=== PATIENT | female | born 1995 ===

== ENCOUNTER 2024-01-04 13:43 | Emergency (ER) | payer BC, SELFPAY ==
[2024-01-04 13:46] VITALS: BP 120/70; PULSE 80; TEMP 36.6; O2SAT 98; BMI 45.7
[2024-01-04 14:23] LABS: Bilirubin Urine NEGATIVE (NEGATIVE); Blood Urine NEGATIVE (NEGATIVE); Clarity Urine CLEAR (CLEAR); Color Urine YELLOW (YELLOW); Glucose Urine UA NEGATIVE (NEGATIVE); Ketones Urine TRACE mg/dL (NEGATIVE); Leukocyte Esterase Urine LARGE (NEGATIVE); Nitrite Urine NEGATIVE (NEGATIVE); Protein Urine NEGATIVE (NEG/TRACE); Specific Gravity Urine 1.025 (1.005-1.025)
[2024-01-04 14:32] LABS: HCG Qualitative Urine* POSITIVE (NEGATIVE); Internal Control Within Normal Limits
[2024-01-04 14:33] LABS: Urine Microscopic Indicated YES
[2024-01-04 14:43] LABS: Bacteria Urine MODERATE #/HPF (NONE SEEN); Cast Seen? NONE SEEN #/LPF (NONE SEEN); Crystals Seen? None Seen #/HPF (None Seen); Mucus Urine SMALL (NONE SEEN); RBC Urine 0-2 #/HPF (0-2); Squamous Epithelial Cell Urine MANY #/LPF (NONE/RARE); Urine Culture Indicated YES
[2024-01-04 14:46] LABS: Basophils Absolute Auto 0.1 10^3/uL (0.0-0.1); Basophils Percent Auto 0.4 % (0.2-2.0); Eosinophils Absolute Auto 0.1 10^3/uL (0.0-0.7); Eosinophils Percent Auto 0.9 % (0.9-7.0); Hematocrit 38.5 % (36.0-48.0); Immature Granulocytes Abs Auto 0.04 10^3/uL (0.00-0.03); Immature Granulocytes Pct Auto 0.3 % (0.0-0.5); Lymphocytes Absolute Auto 2.4 10^3/uL (1.2-3.8); Lymphocytes Percent Auto 20.9 % (20.5-60.0); Mean Corpuscular HGB Conc 33.8 g/dL (29.9-35.2); Mean Corpuscular Hemoglobin 28.8 pg (26.7-34.0); Mean Corpuscular Volume 85.2 fL (81.0-99.0); Monocytes Absolute Auto 0.6 10^3/uL (0.3-0.8); Monocytes Percent Auto 5.6 % (1.7-12.0); Neutrophils Absolute Auto 8.3 10^3/uL (1.4-6.5); Neutrophils Percent Auto 71.9 % (43.0-75.0); Platelet Count 283 10^3/uL (150-450); Red Blood Count 4.52 10^6/uL (4.20-5.40); Red Cell Distribution Width 13.2 % (11.0-15.0); White Blood Count 11.5 10^3/uL (4.0-11.0)
[2024-01-04] MEDS: ONDANSETRON PF 4 MG/2 ML VIAL IV (14:51)
[2024-01-04] MEDS: 0.9 % SODIUM CHLORIDE 1,000 ML 1000 ML IV (14:51)
[2024-01-04 15:13] LABS: Alanine Aminotransferase 39 U/L (14-59); Albumin Globulin Ratio 0.9; Albumin Level 3.4 g/dL (3.4-5.0); Alkaline Phosphatase 81 U/L (46-116); Anion Gap 14.9; Aspartate Amino Transferase 18 U/L (15-37); BUN Creatinine Ratio 17.5; Bilirubin Total 0.2 mg/dL (0.2-1.0); Calcium 8.6 mg/dL (8.5-10.1); Carbon Dioxide 22.3 mmol/L (21.0-32.0); Chloride 102 mmol/L (98-107); Estimated GFR (African America >60 (>=60); Estimated GFR (Non-African Ame >60 (>=60); Globulin 3.7 g/dL; Glucose 83 mg/dL (74-106); Potassium 4.2 mmol/L (3.5-5.1); Sodium 135 mmol/L (136-145); Total Protein 7.1 g/dL (6.4-8.2)
[2024-01-04] MEDS: PROCHLORPERAZINE 10 MG/2 ML VIAL 5 MG IV (15:45)
--- NOTE | 2024-01-04 16:36 | ED_ITS ---
HPI HPI - General Adult General Chief complaint: Nausea/Vomiting/Diarrhea Stated complaint: NAUSEA/VOMITTING 8 WEEKS Time Seen by Provider: 01/04/24 13:53 Source: patient Mode of arrival: walk-in Limitations: no limitations History of Present Illness HPI narrative: The patient is her last menstruation was October 09, is coming to us with nausea vomiting she mentioned that this is the second in the first she did not have any nausea vomiting The patient has not been able to tolerate anything p.o. she is denying any other complaints of vaginal bleeding or abdominal pain She follow-up with Dr. Long as outpatient and she did try some Zofran that she had at home but it was not effective Related Data Previous Rx's ?Medication ?Instructions ?Recorded amoxicillin 875 mg-potassium 1 tab PO BID #10 tabs 01/04/24 clavulanate 125 mg tablet promethazine 12.5 mg tablet 12.5 mg PO TID PRN nausea and 01/04/24 vomiting #10 tabs Allergies Allergy/AdvReac Type Severity Reaction Status Date / Time No Known Drug Allergies Allergy Verified 01/04/24 13:49 Opioid HPI Opioid Management Most Recent Opioid Data: No Data to Display Review of Systems ROS Status of ROS 10 or more systems reviewed and unremark able except as noted in history and below Exam Narrative Exam Narrative: Nurses notes and vital signs reviewed and patient is not hypoxic. General: Well-appearing and in no apparent distress. Skin: Warm, dry, no pallor noted. No rash. Head: Normocephalic, atraumatic. Neck: Supple, non-tender. Eye: Pupils are equal, round and EOMI. No scleral icterus. Ears, Nose, Mouth, and Throat: TM are clear, no nasal mucosal hypertrophy. Oral mucosa is moist, no posterior oropharynx erythema, uvula is mid-line Cardiovascular: Regular Rate and Rhythm without murmur, gallop or rub. Respiratory: No accessory muscle use or respiratory distress. Lungs are clear to auscultation, no wheezing, rales or rhonchi Chest Wall: no tenderness Back: No midline thoracic or lumbar vertebral tenderness. No CVA tenderness Musculoskeletal: normal ROM, no calf or popliteal tenderness, no lower extremity edema/swelling GI: Abdomen is soft, non-distended. Normal bowel sounds. No masses appreciated. No tenderness to palpation. No rebound, guarding, or rigidity noted. Neurological: A&O x4. No cranial nerve dysfunction observed. No truncal ataxia. Moves all extremities. Sensation intact. Psychiatric: Cooperative and interactive. Normal mood and affect. Constitutional Vital Signs, click to edit/add: Last Vital Signs Temp 98 F 01/04/24 13:46 Pulse 80 01/04/24 13:46 Resp 18 01/04/24 13:46 BP 120/70 01/04/24 13:46 Pulse Ox 98 01/04/24 13:46 O2 Del Method Room Air 01/04/24 13:46 Course Vital Signs Vital signs: Vital Signs Temperature 98 F 01/04/24 13:46 Pulse Rate 80 01/04/24 13:46 Respiratory Rate 18 01/04/24 13:46 Blood Pressure 120/70 01/04/24 13:46 Pulse Oximetry 98 01/04/24 13:46 Oxygen Delivery Method Room Air 01/04/24 13:46 Temperature 98 F 01/04/24 13:46 Pulse Rate 80 01/04/24 13:46 Respiratory Rate 18 01/04/24 13:46 Blood Pressure 120/70 01/04/24 13:46 Pulse Oximetry 98 01/04/24 13:46 Oxygen Delivery Method Room Air 01/04/24 13:46 Medical Decision Making MDM Narrative Medical decision making narrative: The patient CBC and chemistry showed no acute pathology She did had some mild ketones in the urine bacteria although she does not have any urinary symptoms The patient was treated initially with Zofran that was not helpful but she did respond better to Compazine The patient will be discharged home after she was provided with IV fluids in addition to Phenergan supportive care The patient is to follow up with primary care physician in next 2-3 days or to return to the emergency department should any of the signs or symptoms worsen or new symptoms develop. The patient agrees with the following Diagnosis and Treatment plan and the patient will be discharged home. Lab Data Labs: Lab Results 01/04/24 01/04/24 Range/Units 14:10 14:40 WBC 11.5 H (4.0-11.0) 10^3/uL RBC 4.52 (4.20-5.40) 10^6/uL Hgb 13.0 (12.0-16.0) g/dL Hct 38.5 (36.0-48.0) % MCV 85.2 (81.0-99.0) fL MCH 28.8 (26.7-34.0) pg MCHC 33.8 (29.9-35.2) g/dL RDW 13.2 (11.0-15.0) % Plt Count 283 (150-450) 10^3/uL MPV 10.0 (9.5-13.5) fL Neut % (Auto) 71.9 (43.0-75.0) % Lymph % (Auto) 20.9 (20.5-60.0) % [place] % (Auto) 5.6 (1.7-12.0) % Eos % (Auto) 0.9 (0.9-7.0) % Baso % (Auto) 0.4 (0.2-2.0) % Neut # (Auto) 8.3 H (1.4-6.5) 10^3/uL Lymph # (Auto) 2.4 (1.2-3.8) 10^3/uL [place] # (Auto) 0.6 (0.3-0.8) 10^3/uL Eos # (Auto) 0.1 (0.0-0.7) 10^3/uL Baso # (Auto) 0.1 (0.0-0.1) 10^3/uL Abs Immat Gran (auto) 0.04 H (0.00-0.03) 10^3/uL Imm/Tot Granulo (auto) 0.3 (0.0-0.5) % Sodium 135 L (136-145) mmol/L Potassium 4.2 (3.5-5.1) mmol/L Chloride 102 (98-107) mmol/L Carbon Dioxide 22.3 (21.0-32.0) mmol/L Anion Gap 14.9 BUN 10.0 (7.0-18.0) mg/dL Creatinine 0.57 (0.55-1.02) mg/dL Est GFR ( Amer) >60 (>=60) Est GFR (Non-Af Amer) >60 (>=60) BUN/Creatinine Ratio 17.5 Glucose 83 (74-106) mg/dL Calcium 8.6 (8.5-10.1) mg/dL Total Bilirubin 0.2 (0.2-1.0) mg/dL AST 18 (15-37) U/L ALT 39 (14-59) U/L Alkaline Phosphatase 81 (46-116) U/L Total Protein 7.1 (6.4-8.2) g/dL Albumin 3.4 (3.4-5.0) g/dL Globulin 3.7 g/dL Albumin/Globulin Ratio 0.9 Urine Color Yellow (YELLOW) Urine Clarity Clear (CLEAR) Urine pH 6.0 (5.0-9.0) Ur Specific [place] 1.025 (1.005-1.025) Urine Protein Negative (NEG/TRACE) mg/dL Urine Glucose (UA) Negative (NEGATIVE) mg/dL Urine Ketones Trace A (NEGATIVE) mg/dL Urine Occult Blood Negative (NEGATIVE) Urine Nitrite Negative (NEGATIVE) Urine Bilirubin Negative (NEGATIVE) Urine Urobilinogen 1.0 (0.2-1.0) EU/dL Ur Leukocyte Esterase Large A (NEGATIVE) Urine RBC 0-2 (0-2) #/HPF Urine WBC 10-20 A (NONE SEEN) #/HPF Ur Squamous Epith Cells Many A (NONE/RARE) #/LPF Urine Crystals None seen (None Seen) #/HPF Urine Bacteria Moderate A (NONE SEEN) #/HPF Urine Casts None seen (NONE SEEN) #/LPF Urine Mucus Small A (NONE SEEN) Ur Culture Indicated? Yes Urine HCG, Qual Positive A (NEGATIVE) Discharge Plan Discharge Stand Alone Forms: Work/School Release, Portal Instructions Chief Complaint: Nausea/Vomiting/Diarrhea Clinical Impression: Nausea and vomiting in , Antepartum asymptomatic bacteriuria in first trimester Patient Disposition: Home, Self-Care Time of Disposition Decision: 16:36 Condition: Good Prescriptions / Home Meds: New promethazine 12.5 mg tablet 12.5 mg PO TID PRN (Reason: nausea and vomiting) Qty: 10 0RF Rx Instructions: 3 doses during day; last dose no later than 4 hr before bedtime amoxicillin-pot clavulanate 875-125 mg tablet 1 tab PO BID Qty: 10 0RF Print Language: Swazi Instructions: Nausea and Vomiting in (ED) Referrals: Physician,Non-Staff, MD [Primary Care Provider] - 1 week
== END 2024-01-04 16:56 | disposition home or self-care (01) ==
PROVIDERS: Emergency Provider Emergency Medicine
DX: O26.891 Other specified pregnancy related conditions, first trimester (principal); R11.2 Nausea with vomiting, unspecified; R82.71 Bacteriuria; Z3A.08 8 weeks gestation of pregnancy
CPT/HCPCS: 36415; 80053; 81001; 84703; 85025; 87086; 96361; 96374; 96375; 99285; J0780; J2405

== ENCOUNTER 2024-01-16 13:50 | Outpatient (OUT) | payer BC, SELFPAY ==
--- NOTE | 2024-01-16 13:52 | US_ITS ---
[address] [address] Patient Name: NIKOLAI COYNE MRN: [id number] date: 1995 Sex: F Assigned Patient Location: [facility] Current Patient Location: Accession/Order Number: [id number] Exam Date: 01/16/2024 13:55 Report Date: 01/17/2024 04:20 At the request of: MARY CARMEN DELEON Procedure: US OB transvaginal EXAMINATION: US OB transvaginal HISTORY: MISSED MENSES COMPARISON: No relevant comparison available. FINDINGS: GESTATIONAL SAC: Present and normal appearing. YOLK SAC: Present and normal appearing. POLE: Present and normal appearing. CARDIAC: Present. UTERUS: Normal size and appearance. OVARIES: Right: Normal. Left: Corpus lutein cyst. CERVIX: 4.0 cm in length and closed. CUL-DE-SAC: Normal. OTHER: None. AGE BY LMP: 14 weeks 0 days VINICIO BY LMP: 07/16/2024 AGE BY US CRL: 10 weeks 0 days VINICIO BY US CRL: 08/13/2024 US/US OB transvaginal IMPRESSION: 1. Single live intrauterine . Electronically authenticated by: JOSUE AVERY Date: 01/17/2024 04:20
== END 2024-01-16 13:51 | disposition home or self-care (01) ==
LOC: NOMS 13:51
PROVIDERS: Visit Provider Obstetrics & Gynecology
DX: Z34.91 Encounter for supervision of normal pregnancy, unspecified, first trimester (principal); Z3A.10 10 weeks gestation of pregnancy; N92.6 Irregular menstruation, unspecified
CPT/HCPCS: 76817

== ENCOUNTER 2024-02-04 16:08 | Outpatient (OUT) | payer BC, SELFPAY ==
--- OUTSIDE RECORDS SUMMARY | 2024-02-04 16:12 | XMS_ITS | CCD ---
Author Organization [facility] Care Team Providers Care Screw Machine Set Up Operator Name Role Phone Tarah NICOLEgh Lidia Primary Care Physician [phone] Rosy Jaquez Aleksandar V. Attending Damion Tobias V. Attending ALMA Burris Attending Unavailable DK ZACARIAS Attending CARMELLA Guerra Attending CARMELLA Guerra Attending Unavailable Allergies Allergy Classification Reported Allergen(s) Allergy Type Date of Onset Reaction(s) Facility (1 source) No Known Medication Allergies; Translations: [No Known Medication Allergies] Propensity to adverse reactions (disorder) [facility] Repository Medications Current Medications Medication Drug Class(es) Dates Sig (Normalized) Sig (Original) amoxicillin 500 mg oral tablet (1 source) Penicillin-class Antibacterial Start: 01-16-2023 End: 01-23-2023 take 2 tablets by mouth twice daily amoxicillin 500 mg oral tablet 1,000 mg = 2 tab(s), Oral, BID, X 7 day(s), # 28 tab(s), Refills(s) 0, Pharmacy: [facility], 157, cm, 01/16/23 15:17:00 EDT, Height/Length Dosing, 98.6, kg, 01/16/23 15:17:00 EDT, Weight Dosing Start Date: 01/16/23 Stop Date: 01/23/23 Status: Ordered ferrous sulfate 325 mg oral tablet (3 sources) Start: 12-21-2021 take 325 mg by mouth twice daily ferrous sulfate 325 mg, Oral, BID, Refills(s) 0 Start Date: 12/21/21 Status: Ordered ibuprofen 600 mg oral tablet (1 source) Nonsteroidal Anti-inflammatory Drug Start: 02-01-2022 take 1 tablet by mouth every six hours ibuprofen 600 mg Tab 600 mg = 1 tab(s), Oral, q6hr, # 15 tab(s), Refills(s) 0, Pharmacy: [facility], 157.4, cm, 01/30/22 18:05:00 EDT, Height/Length Dosing, 92.3, kg, 01/30/22 18:05:00 EDT, Weight Dosing Start Date: 02/01/22 Status: Ordered ondansetron 4 mg oral tablet (2 sources) Serotonin-3 Receptor Antagonist Start: 04-11-2023 take 1 tablet by mouth every six hours as needed for nausea ondansetron 4 mg Tab 4 mg = 1 tab(s), Oral, q6hr, PRN Nausea/Vomiting, # 15 tab(s), Refills(s) 0, Pharmacy: [facility], 160, cm, 04/11/23 16:22:00 EST, Height/Length Dosing, 97.4, kg, 04/11/23 16:22:00 EST, Weight Dosing Start Date: 04/11/23 Status: Ordered Complete with DHA (1 source) Start: 01-30-2022 Complete with DHA Refill(s) 0 Start Date: 01/30/22 Status: Ordered Problems Active Problems Problem Classification Problem Date Documented Da te Episodic/Chronic Abdominal pain (7 sources) Epigastric pain 02-25-2020 Episodic Nausea and vomiting (1 source) Nausea and vomiting; Translations: [Nausea with vomiting, unspecified] Onset: 04-11-2023 Episodic Other complications of (4 sources) Maternal tobacco use 01-30-2022 Episodic Other complications of (1 source) Unspecified infection of urinary tract in , first trimester; Translations: [Unspecified infection of urinary tract in , first trimester] Onset: 01-10-2024 Episodic Other complications of (1 source) Vomiting of , unspecified; Translations: [Vomiting of , unspecified] Onset: 01-10-2024 Episodic Other ear and sense organ disorders (1 source) Impacted cerumen of bilateral ears; Translations: [Impacted cerumen, bilateral] Onset: 01-16-2023 Episodic Other gastrointestinal disorders (1 source) Diarrhea; Translations: [Diarrhea, unspecified] Onset: 04-11-2023 Episodic Other liver diseases (7 sources) Elevated liver enzymes level 02-25-2020 Episodic Other nutritional; endocrine; and metabolic disorders (7 sources) Body mass index 30+ - obesity 05-20-2021 Chronic Other nutritional; endocrine; and metabolic disorders (7 sources) Obesity 05-20-2021 Chronic Other nutritional; endocrine; and metabolic disorders (1 source) Morbid obesity; Translations: [Morbid (severe) obesity due to excess calories] Onset: 01-16-2023 Chronic Other nutritional; endocrine; and metabolic disorders (1 source) Other symptoms and signs concerning food and fluid intake; Translations: [Other symptoms and signs concerning food and fluid intake] Onset: 01-10-2024 Episodic Other and delivery including normal (1 source) Delivery normal; Translations: [Encounter for full-term uncomplicated delivery] Onset: 02-01-2022 Episodic Otitis media and related conditions (1 source) Otitis media; Translations: [Otitis media, unspecified, left ear] Onset: 01-16-2023 Episodic Residual codes; unclassified (7 sources) High risk sexual behavior 12-30-2019 Episodic Substance-related disorders (9 sources) Cigarette smoker ; Translations: [Nicotine dependence] Onset: 02-01-2022 02-25-2020 Chronic Past or Other Problems Problem Classification Problem Date Documented Da te Episodic/Chronic Unclassified (6 sources) Onset: 05-03-2021 Resolved: 01-31-2022 11-08-2021 Results Test Name Value Interpretation Reference Range Facility Cult,Urineon 01-12-2024 Cult,Urine Specimen Description .Random Urine Culture NO SIGNIFICANT GROWTH Report Status FINAL 01/12/2024 Normal [facility] Comment on above: Performed By: #### U RC #### [facility] [address] [place] [address] Anime Artist: Les Garzon MD [facility] [address] [place] [address] Anime Artist: Matt Jarrell MD CBC with Diffon 01-10-2024 Abs. Basophil 0.03 k/uL Normal 0.00-0.20 [facility] Comment on above: Performed By: #### C DP, LIP, CP #### [facility] [address] [place] [address] Anime Artist: Matt Jarrell MD Abs.Imm.Granulocyte 0.03 k/uL Normal 0.00-0.30 [facility] Comment on above: Performed By: #### C DP LIP, CP #### [facility] [address] [place] [address] Anime Artist: Matt Jarrell MD Abs.Neutrophil (Seg) 8.26 k/uL High 2.5-7.0 [facility] Comment on above: Performed By: #### C DP LIP, CP #### [facility] [address] [place] [address] Anime Artist: Matt Jarrell MD Basophils/100 WBC (Bld) 0 % Normal 0-2 [facility] Comment on above: Performed By: #### C AKIRA LIP, CP #### [facility] [address] [place] [address] Anime Artist: Matt Jarrell MD Eosinophils (Bld) [#/Vol] 0.08 10*3/uL Normal 0.00-0.40 [facility] Comment on above: Performed By: #### C DP LIP, CP #### [facility] [address] [place] [address] Anime Artist: Matt Jarrell MD Eosinophils/100 WBC (Bld) 1 % Normal 0-5 [facility] Comment on above: Performed By: #### C DP LIP, CP #### [facility] [address] [place] [address] Anime Artist: Matt Jarrell MD Erythrocyte distribution width (RBC) [Ratio] 13.0 % Normal 12.1-15.2 [facility] Comment on above: Performed By: #### C DP LIP, CP #### [facility] [address] [place] [address] Anime Artist: Matt Jarrell MD Hematocrit (Bld) [Volume fraction] 38.8 % Normal 36.0-46.0 [facility] Comment on above: Performed By: #### C OTILIA CHAMPION, CP #### [facility] [address] [place], [place] [id number] Anime Artist: Matt Jarrell MD Hemoglobin (Bld) [Mass/Vol] 13.3 g/dL Normal 12.0-16.0 [facility] Comment on above: Performed By: #### C AKIRA LIP, CP #### [facility] [address] [place], [place] [id number] Anime Artist: Matt Jarrell MD Immature granulocytes/100 WBC (Bld) 0 % Normal 0-5 [facility] Comment on above: Performed By: #### C OTILIA CHAMPION, CP #### [facility] [address] [place], [place] [id number] Anime Artist: Matt Jarrell MD Lymphocytes (Bld) [#/Vol] 2.31 10*3/uL Normal 1.00-4.80 [facility] Comment on above: Performed By: #### C OTILIA CHAMPION, CP #### [facility] [address] [place], [place] [id number] Anime Artist: Matt Jarrell MD Lymphocytes/100 WBC (Bld) 20 % Normal 15-40 [facility] Comment on above: Performed By: #### C AKIRA LIP, CP #### [facility] [address] [place], [place] [id number] Anime Artist: Matt Jarrell MD MCH (RBC) [Entitic mass] 28.8 pg Normal 26.0-34.0 [facility] Comment on above: Performed By: #### C AKIRA LIP, CP #### [facility] [address] [place], [place] [id number] Anime Artist: Matt Jarrell MD MCHC (RBC) [Mass/Vol] 34.3 g/dL Normal 31.0-37.0 [facility] Comment on above: Performed By: #### C OTILIA CHAMPION, CP #### [facility] [address] [place] [address] Anime Artist: Matt Jarrell MD MCV (RBC) [Entitic vol] 84.0 fL Normal 80.0-100.0 [facility] Comment on above: Performed By: #### C OTILIA CHAMPION, CP #### [facility] [address] [place] [address] Anime Artist: Matt Jarrell MD Monocytes (Bld) [#/Vol] 0.71 10*3/uL Normal 0.00-1.00 [facility] Comment on above: Performed By: #### C OTILIA CHAMPION, CP #### [facility] [address] [place] [address] Anime Artist: Matt Jarrell MD Monocytes/100 WBC (Bld) 6 % Normal 4-8 [facility] Comment on above: Performed By: #### C OTILIA CHAMPION, CP #### [facility] [address] [place] [address] Anime Artist: Matt Jarrell MD Neutrophil (Seg) 73 % Normal 47-75 [facility] Comment on above: Performed By: #### C OTILIA CHAMPION, CP #### [facility] [address] [place] [address] Anime Artist: Matt Jarrell MD Platelet mean volume (Bld) [Entitic vol] 9.9 fL Normal 6.0-12.0 [facility] Comment on above: Performed By: #### C OTILIA CHAMPION, CP #### [facility] [address] [place] [address] Anime Artist: Matt Jarrell MD Platelets (Bld) [#/Vol] 244 10*3/uL Normal 140-450 [facility] Comment on above: Performed By: #### C OTILIA CHAMPION, CP #### [facility] [address] [place] [id number] Anime Artist: Matt Jarrell MD RBC (Bld) [#/Vol] 4.62 10*6/uL Normal 4.00-5.20 [facility] Comment on above: Performed By: #### C OTILIA CHAMPION, CP #### [facility] [address] [place] [id number] Anime Artist: Matt Jarrell MD WBC (Bld) [#/Vol] 11.4 10*3/uL High 3.5-11.0 [facility] Comment on above: Performed By: #### C OTILIA CHAMPION, CP #### [facility] [address] [place] [address] Anime Artist: Matt Jarrell MD Comp Metabolic Profon 2023 Albumin [Mass/Vol] 4.0 g/dL Normal 3.5-5.2 [facility] Comment on above: Performed By: #### C OTILIA CHAMPION, CP #### [facility] [address] [place] [address] Anime Artist: Matt Jarrell MD Alkaline Phos 92 U/L Normal 35-104 [facility] Comment on above: Performed By: #### C OTILIA CHAMPION, CP #### [facility] [address] [place] [address] Anime Artist: Matt Jarrell MD ALT [Catalytic activity/Vol] 43 U/L High 5-33 [facility] Comment on above: Performed By: #### C OTILIA CHAMPION, CP #### [facility] [address] [place] [id number] Anime Artist: Matt Jarrell MD Anion gap [Moles/Vol] 15 mmol/L Normal 9-17 [facility] Comment on above: Performed By: #### C DP, LIP, CP #### [facility] [address] [place] [address] Anime Artist: Matt Jarrell MD AST [Catalytic activity/Vol] 22 U/L Normal <32 [facility] Comment on above: Performed By: #### C DP, LIP, CP #### [facility] [address] [place] [address] Anime Artist: Matt Jarrell MD Bilirubin [Mass/Vol] 0.6 mg/dL Normal 0.3-1.2 [facility] Comment on above: Performed By: #### C DP, LIP, CP #### [facility] [address] [place] [address] Anime Artist: Matt Jarrell MD BUN/CRE Ratio 18 Normal 9-20 [facility] Comment on above: Performed By: #### C DP, LIP, CP #### [facility] [address] [place] [address] Anime Artist: Matt Jarrell MD Calcium [Mass/Vol] 9.1 mg/dL Normal 8.6-10.4 [facility] Comment on above: Performed By: #### C DP, LIP, CP #### [facility] [address] [place] [address] Anime Artist: Matt Jarrell MD Chloride [Moles/Vol] 101 mmol/L Normal 98-107 [facility] Comment on above: Performed By: #### C DP, LIP, CP #### [facility] [address] [place] [address] Anime Artist: Matt Jarrell MD CO2 [Moles/Vol] 19 mmol/L Low 20-31 [facility] Comment on above: Performed By: #### C DP, LIP, CP #### [facility] [address] [place], [place] [id number] Anime Artist: Matt Jarrell MD Creatinine [Mass/Vol] 0.5 mg/dL Normal 0.5-0.9 [facility] Comment on above: Performed By: #### C OTILIA CHAMPION, CP #### [facility] [address] [place], [place] [phone] Anime Artist: Matt Jarrell MD GFR/1.73 sq M.predicted among non-blacks MDRD (S/P/Bld) [Vol rate/Area] mL/min/{1.73_m2} Normal >60 [facility] Comment on above: Result Comment: These results are not intended for use in patients <18 years of age. eGFR results are calculated without a race factor using the 2020 CKD-EPI equation. Careful clinical correlation is recommended, particularly when comparing to results calculated using previous equations. The CKD-EPI equation is less accurate in patients with extremes of muscle mass, extra-renal metabolism of creatine, excessive creatine ingestion, or following therapy that affects renal tubular secretion. Performed By: #### C OTILIA CHAMPION, CP #### [facility] [address] [place] [address] Anime Artist: Matt Jarrell MD Glucose [Mass/Vol] 95 mg/dL Normal 70-99 [facility] Comment on above: Performed By: #### C OTILIA CHAMPION, CP #### [facility] [address] [place], [place] [phone] Anime Artist: Matt Jarrell MD Potassium [Moles/Vol] 3.7 mmol/L Normal 3.7-5.3 [facility] Comment on above: Performed By: #### C OTILIA CHAMPION, CP #### [facility] [address] [place], [place] [id number] Anime Artist: Matt Jarrell MD Protein [Mass/Vol] 7.2 g/dL Normal 6.4-8.3 [facility] Comment on above: Performed By: #### C OTILIA CHAMPION, CP #### [facility] [address] [place] [address] Anime Artist: Matt Jarrell MD Sodium [Moles/Vol] 135 mmol/L Normal 135-144 [facility] Comment on above: Performed By: #### C OTILIA CHAMPION, CP #### [facility] [address] [place], [place] [id number] Anime Artist: Matt Jarrell MD Urea nitrogen [Mass/Vol] 9 mg/dL Normal 6-20 [facility] Comment on above: Performed By: #### C AKIRA LIP, CP #### [facility] [address] [place], [place] [phone] Anime Artist: Matt Jarrell MD HCG, Quanton 01-10-2024 HCG, Quant 552190.0 mIU/mL High <5 [facility] Comment on above: Result Comment: Non-preg premeno <=5 Postmeno <=8 Male <=3 If HCG results do not concur with clinical observations, additional testing to confirm results is recommended. Performed By: #### B HCG #### [facility] [address] [place], [place] [id number] Anime Artist: Matt Jarrell MD Lipaseon 01-10-2024 Lipase [Catalytic activity/Vol] 13 U/L Normal 13-60 [facility] Comment on above: Performed By: #### C OTILIA CHAMPION, CP #### [facility] [address] [place], [place] [id number] Anime Artist: Matt Jarrell MD Urinalysis, Routineon 2023 Bilirubin, SemiQt,Ur Negative Normal NEG [facility] Comment on above: Performed By: #### KIRA Brewer #### [facility] [address] [place] [address] Anime Artist: Matt Jarrell MD Blood, Urine TRACE Abnormal NEG [facility] Comment on above: Performed By: #### SAGRARIO BrewerO #### [facility] [address] [place] [address] Anime Artist: Matt Jarrell MD Clarity (U) Clear Normal CLEAR [facility] Comment on above: Performed By: #### U A, UMICAO #### [facility] [address] [place] [address] Anime Artist: Matt Jarrell MD Color (U) Yellow Normal YEL [facility] Comment on above: Performed By: #### U A, UMICAO #### [facility] [address] [place] [address] Anime Artist: Matt Jarrell MD Comment Normal [facility] Comment on above: Performed By: #### U A, UMICAO #### [facility] [address] [place], [place] [id number] Anime Artist: Matt Jarrell MD Glucose Ql (U) Negative Normal NEG [facility] Comment on above: Performed By: #### U A, UMICAO #### [facility] [address] [place], [place] [phone] Anime Artist: Matt Jarrell MD Ketones Ql (U) MODERATE Abnormal NEG [facility] Comment on above: Performed By: #### U A, UMICAO #### [facility] [address] [place], [place] [phone] Anime Artist: Matt Jarrell MD Leukocyte esterase Test strip Ql (U) 3+ Abnormal NEG [facility] Comment on above: Performed By: #### U A, UMICAO #### [facility] [address] [place], [place] [id number] Anime Artist: Matt Jarrell MD Nitrite,Ur Negative Normal NEG [facility] Comment on above: Performed By: #### U A, UMICAO #### [facility] [address] [place], [place] [phone] Anime Artist: Matt Jarrell MD PH,Ur 6.5 Normal 5.0-8.0 [facility] Comment on above: Performed By: #### U KIRA Murillo #### [facility] [address] [place], [place] [id number] Anime Artist: Matt Jarrell MD Protein Ql (U) 1+ mg/dL Abnormal NEG [facility] Comment on above: Performed By: #### U SAGRARIO MurilloO #### [facility] [address] [place], [place] [id number] Anime Artist: Matt Jarrell MD Spec. Eads,Ur 1.015 Normal 1.005-1.030 [facility] Comment on above: Performed By: #### U KIRA Murillo #### [facility] [address] [place], [place] [id number] Anime Artist: Matt Jarrell MD Urobilinogen,Ur 8 mg/dL Normal 0.0-1.0 [facility] Comment on above: Performed By: #### U KIRA Murillo #### [facility] [address] [place], [place] [id number] Anime Artist: Matt Jarrell MD Urinalysis,Microon 4 ----- Normal [facility] Comment on above: Performed By: #### U SAGRARIO MurilloO #### [facility] [address] [place], [place] [id number] Anime Artist: Matt Jarrell MD Bacteria RARE Abnormal NONE [facility] Comment on above: Performed By: #### U ASAGRARIOO #### [facility] [address] [place], [place] [id number] Anime Artist: Matt Jarrell MD Epithelial cells LM Ql (Urine sed) 0 TO 2 Normal [facility] Comment on above: Performed By: #### U ASAGRARIOO #### [facility] [address] [place], [place] [phone] Anime Artist: Matt Jarrell MD Mucus Strands RARE Abnormal NONE [facility] Comment on above: Performed By: #### U A, UMICAO #### [facility] [address] [place], [place] [id number] Anime Artist: Matt Jarrell MD Urine RBC's 0 TO 2 Normal 0-2 [facility] Comment on above: Performed By: #### U A, UMICAO #### [facility] [address] [place], [place] [id number] Anime Artist: Matt Jarrell MD Urine WBC's 10 TO 20 Normal 0 [facility] Comment on above: Performed By: #### U A, UMICAO #### [facility] [address] [place], [place] [phone] Anime Artist: Matt Jarrell MD Provider Letteron 04-12-2023 Provider Letter April 12, 2023 [facility] [address] [place] [address] : 1995 To Whom It May Concern, Please excuse above patient from work. Date of Illness:04-11-2023 To: 04-14-2023 May Return to Work On:04-15-2023 Restrictions: _ Comments: _ Sincerely, [facility] [address] [place] [address] [place] [address] [facility] Family Medicine Office/Clini c Noteon 04-11-2023 Family Medicine Office/Clinic Note Chief Complaint n/v/d HPI Staff 27 yr old female here for abdominal pain and diarrhea. Nausea and vomiting. Onset- Saturday fever/chills- Chills Body aches- yes History of Present Illness Portions of this record may have been created with voice recognition artificial intelligence software, specifically [employer], [employer] and or [employer]. Substitutions may have occurred due to the inherent limitations of voice recognition and artificial intelligence software. Staff hpi reviewed. Patient is a 27-year-old female complaint of nausea vomiting and diarrhea. Patient states son is a same symptoms. Patient states his symptoms began on Saturday and has had fevers and chills. No other complaints or concerns. Patient with no known medication allergies. Review of Systems PHQ Score Initial Depression Screen Score: 0 SCORE Physical Exam Vitals & Measurements T: 36.5 ?C(Temporal Artery) HR: 90(Peripheral) BP: 122/75 SpO2: 99% HT: 63 in HT: 160 cm WT: 97.4 kg WT: 214.28 lb BMI: 38.05 General - alert no acute distress Skin - warm dry Head -normocephalic atraumatic ENT-no pharyngeal erythema or exudates, moist mucous membranes Cardiovascular - regular rate regular rhythm Respiratory - lungs clear to auscultation, non-labored respirations, breath sounds equal Assessment/Plan 1. Nausea & vomiting (R11.2: Nausea with vomiting, unspecified) Patient flu was negative. Patient was treated with Zofran. Continue with fluids and rest. Avoid any spicy or acidic foods. Follow-up with PCP in 3 to 5 days for recheck. Sooner with any worsening symptoms. 2. Diarrhea (R19.7: Diarrhea, unspecified) Same as above. Orders: ondansetron, 4 mg = 1 tab(s), Oral, q6hr, PRN Nausea/Vomiting, # 15 tab(s), Refills(s) 0, Pharmacy: [facility], 160, cm, 04/11/23 16:22:00 EST, Height/Length Dosing, 97.4, kg, 04/11/23 16:22:00 EST, Weight Dosing Follow-up With When Contact Information Breonna NICOLE CNP [address] [place] [address]- Additional Instructions: Patient Education Nausea and Vomiting, Adult Problem List/Past Medical History Ongoing BMI 34.0-34.9,adult Cigarette smoker Elevated liver enzymes Epigastric abdominal pain High risk sexual behavior Obesity due to excess calories Historical Procedure/Surgical History Left wrist. Medications ondansetron 4 mg Tab, 4 mg= 1 tab(s), Oral, q6hr, PRN Allergies No Known Allergies Social History Alcohol - Medium Risk, 02/23/2020 1-2 times per week, 02/23/2020 Current, Beer, Wine, Liquor, 1-2 times per month, 01/19/2019 Substance Abuse - Denies Substance Abuse, 01/19/2019 Tobacco - High Risk, 02/23/2020 10 or more cigarettes (1/2 pack or more)/day in last 30 days Tobacco Use:. Never Smokeless Tobacco Use:. Cigarettes, Yes, 04/11/2023 10 or more cigarettes (1/2 pack or more)/day in last 30 days Tobacco Use:. Never Smokeless Tobacco Use:. Cigarettes, Ready to change: No. Household tobacco concerns: No. Yes, 01/16/2023 Family History Family history is negative Immunizations Vaccine Date Status Comments influenza virus vaccine, inactivated - Not Given Postpone due to refusal SARS-CoV-2 mRNA (tochikinameran 5y-11y) vac - Not Given Postpone due to refusal human papillomavirus vaccine 06/09/2009 Recorded influenza virus vaccine, inactivated 02/05/2009 Recorded human papillomavirus vaccine 02/05/2009 Recorded varicella virus vaccine 12/03/2008 Recorded diphtheria/pertussis , acel/tetanus adult 12/03/2008 Recorded meningococcal conjugate vaccine 12/03/2008 Recorded human papillomavirus vaccine 12/03/2008 Recorded measles/mumps/rubell a virus vaccine 12/05/2001 Recorded DTaP, unspecified formulation 12/05/2001 Recorded varicella virus vaccine 04/06/1998 Recorded poliovirus vaccine, inactivated 04/06/1998 Recorded measles/mumps/rubell a virus vaccine 04/06/1998 Recorded haemophilus b conj (PRP-OMP) vaccine 04/06/1998 Recorded DTaP, unspecified formulation 04/06/1998 Recorded hepatitis B pediatric vaccine 08/25/1997 Recorded haemophilus b conj (PRP-OMP) vaccine 08/25/1997 Recorded DTaP, unspecified formulation 08/25/1997 Recorded poliovirus vaccine, inactivated 02/08/1997 Recorded haemophilus b conj (PRP-OMP) vaccine 02/08/1997 Recorded poliovirus vaccine, inactivated 1996 Recorded hepatitis B pediatric vaccine 1996 Recorded haemophilus b conj (PRP-OMP) vaccine 1996 Recorded DTaP, unspecified formulation 1996 Recorded hepatitis B pediatric vaccine 1996 Recorded Normal [facility] Comment on above: Result Comment: Elec tronically Signed By: Spasic PA-Damion Frances.br\Date and Time Signed: 04/11/23 17:10 EST Patient Educationon 04-11-20 Patient Education Gastroenterology Nausea and Vomiting, Adult Nausea is the feeling that you have an upset stomach or that you are about to vomit. As nausea gets worse, it can lead to vomiting. Vomiting is when stomach contents forcefully come out of your mouth as a result of nausea. Vomiting can make you feel weak and cause you to become dehydrated. Dehydration can make you feel tired and thirsty, cause you to have a dry mouth, and decrease how often you urinate. Older adults and people with other diseases or a weak disease-fighting system (immune system) are at higher risk for dehydration. It is important to treat your nausea and vomiting as told by your health care provider. Follow these instructions at home: Watch your symptoms for any changes. Tell your health care provider about them. Eating and drinking ? Take an oral rehydration solution (ORS). This is a drink that is sold at pharmacies and retail stores. ? Drink clear fluids slowly and in small amounts as you are able. Clear fluids include water, ice chips, low-calorie sports drinks, and fruit juice that has water added (diluted fruit juice). ? Eat bland, vuhu-ms-yciqrr foods in small amounts as you are able. These foods include bananas, applesauce, rice, lean meats, toast, and crackers. ? Avoid fluids that contain a lot of sugar or caffeine, such as energy drinks, sports drinks, and soda. ? Avoid alcohol. ? Avoid spicy or fatty foods. General instructions ? Take uksy-pzh-wapcffq and prescription medicines only as told by your health care provider. ? Drink enough fluid to keep your urine pale yellow. ? Wash your hands often using soap and water for at least 20 seconds. If soap and water are not available, use hand product blending supervisor. ? Make sure that everyone in your household washes their hands well and often. ? Rest at home while you recover. ? Watch your condition for any changes. ? Take slow and deep breaths when you feel nauseous. ? Keep all follow-up visits. This is important. Contact a health care provider if: ? Your symptoms get worse. ? You have new symptoms. ? You have a fever. ? You cannot drink fluids without vomiting. ? Your nausea does not go away after 2 days. ? You feel light-headed or dizzy. ? You have a headache. ? You have muscle cramps. ? You have a rash. ? You have pain while urinating. Get help right away if: ? You have pain in your chest, neck, arm, or jaw. ? You feel extremely weak or you faint. ? You have persistent vomiting. ? You have vomit that is bright red or looks like black coffee grounds. ? You have bloody or black stools (feces) or stools that look like tar. ? You have a severe headache, a stiff neck, or both. ? You have severe pain, cramping, or bloating in your abdomen. ? You have difficulty breathing, or you are breathing very quickly. ? Your heart is beating very quickly. ? Your skin feels cold and clammy. ? You feel confused. ? You have signs of dehydration, such as: ? Dark urine, very little urine, or no urine. ? Cracked lips. ? Dry mouth. ? Sunken eyes. ? Sleepiness. ? Weakness. These symptoms may be an emergency. Get help right away. Call 911. ? Do not wait to see if the symptoms will go away. ? Do not drive yourself to the hospital. Summary ? Nausea is the feeling that you have an upset stomach or that you are about to vomit. As nausea gets worse, it can lead to vomiting. Vomiting can make you feel weak and cause you to become dehydrated. ? Follow instructions from your health care provider about eating and drinking to prevent dehydration. ? Take zqaw-uur-bvwneaf and prescription medicines only as told by your health care provider. ? Contact your health care provider if your symptoms get worse, or you have new symptoms. ? Keep all follow-up visits. This is important. This information is not intended to replace advice given to you by your health care provider. Make sure you discuss any questions you have with your health care provider. Document Revised: 11/03/2021 Document Reviewed: 11/03/2021 [employer] Patient Education ? 2022 [employer] [facility] Patient Letter FTon 2022 Patient Letter [facility] [address], [place] [address] April 11, 2023 BECKI COYNE [address] [place] [address] : 1995 Please excuse BECKI COYNE from work . Date and/or Time of Absence: From: 04/11 To: 03/15 May return to work on: 03/16 Restrictions: None Comments: Please excuse due to an acute illness. Provider Signature: Keshav Ortega PA-C [address] [place] [address] [facility] Family Medicine Office/Clini c Noteon 01-16-2023 Family Medicine Office/Clinic Note Chief Complaint EST left ear pain, sore throat HPI Staff Becki, 27 yo female here today with ear pain Onset- 1 wk ago Fevers: no Sinus congestion: yes Sneezing: yes Ear pain: left Ear itching, popping, fullness, ringing, muffled hearing: all Ear drainage: no Sore throat: yes Ear pain worse with chewing: no DIfficulty hearing: no Treatment- no History of Present Illness I have reviewed and verified the staff HPI to be accurate for this encounter. Portions of this record have been created with voice recognition software. Occasional wrong-word or ?lzrto-h-dwqb? substitutions may have occurred due to the inherent limitations of voice recognition software. 27 yo female presents today with cc of ear pain. Pt states onset of ear pain x 1 week ago. Patient states that 1 week ago she had some nasal congestion now little bit of a runny nose. She thought that the left ear is bothering her just from the congestion and fullness however pain is continued x1 week. She denies any fever or chills but states the left ear has been throbbing. She denies any significant cough she states a minor scratchy throat. She denies any recent sick contacts or recent travel. Denies any COVID-19 exposure that she is aware of and does not have concern for COVID-19 today. Patient has no other concerns at this time. Review of Systems PHQ Score Initial Depression Screen Score: 0 ROS negative unless otherwise stated in HPI. Physical Exam Vitals & Measurements T: 36.9 ?C(Oral) HR: 76(Peripheral) BP: 118/78 SpO2: 98% HT: 62 in HT: 157 cm WT: 98.6 kg WT: 216.92 lb BMI: 40 General: pleasant, obese female, no acute distress Eyes: Bilateral conjunctival with normal limits no injection Ears: Bilateral tympanic membranes are not visualized due to bilateral cerumen impaction. Otherwise right external auditory canal within normal limits no erythema or edema. There is some edema at the base of the left external auditory canal there is a cerumen impaction otherwise no edema. Nose: No deformity, discharge, inflammation, or lesions Mouth: Moist mucous membrane. No tonsillar erythema or exudate no signs of peritonsillar abscess no trismus or drooling. Neck: no adenopathy. Lungs: Lung sounds are clear bilaterally. No wheezing rhonchi or crackles on exam. Cardio: S1, S2, regular rhythm. No murmurs gallops or rubs. Abdomen: not assessed Musculoskeletal: not assessed Extremity: not assessed Neurologic: not assessed Skin: No rashes, ulcerations, or suspicious lesions Mental Status: Alert and oriented x3. Normal mood and affect Assessment/Plan 1. Left otitis media (H66.92: Otitis media, unspecified, left ear) Will treat with amoxicillin 1g bid x 7 days. Finish course. Fluids/rest, PRN tylenol/ibuprofen for pain and/or fever encouraged. Discussed other cold symptoms remain viral in nature- typical duration 7-14 days.Encouraged to follow up with PCP for recheck in about 5 days to ensure infection resolving, especially if symptoms worsening or fevers. Patient and/or parent verbalized understanding of treatment plan. Ordered: amoxicillin, 1,000 mg = 2 tab(s), Oral, BID, X 7 day(s), # 28 tab(s), Refills(s) 0, Pharmacy: [facility], 157, cm, 01/16/23 15:17:00 EDT, Height/Length Dosing, 98.6, kg, 01/16/23 15:17:00 EDT, Weight Dosing 2. Impacted cerumen, bilateral (H61.23: Impacted cerumen, bilateral) Bilateral ears flushed out by Huyen WALTERS. Patient tolerated well. moderate amount of cerumen removed. After flushing, right tympanic membrane appears with normal limits no erythema or bulging. Left tympanic membrane is significantly erythematous and bulging concerning for left otitis media. See plan of treatment above discussed ear may feel a little sore for the next 2 days. Fu with PCP if any further concerns. If needs ears flushed out in future may return to convenient care office. Ordered: Ear Irrigation 48613 Ear Irrigation 11995 3. Cigarette smoker (F17.210: Nicotine dependence, cigarettes, uncomplicated) We strongly recommend to quit tobacco use. Cigarette smoking harms nearly every organ of the body, causes many diseases, and reduces the health of smokers in general. Quitting smoking lowers your risk for smoking-related diseases and can add years to your life. We encourage you to visit www.smokefree.gov access to helpful resources including free telephone support. If you decide on prescription treatment to help you quit, we would be happy to provide these. Ordered: Current tobacco smoker 1034F 4. Morbid obesity with BMI of 40.0-44.9, adult (E66.01: Morbid (severe) obesity due to excess calories) The standard range for ages 18 and older is >=18.5 and < 25 kg/m2. Your BMI today was above this range, this falls in the overweight to obese category and there are medical benefits to weight loss. We can offer counselling, referral, and/or medical support in addressing this problem. Your BMI and weight management will be followed at subsequent vi (more content not included)... Normal [facility] Comment on above: Result Comment: Elec tronically Signed By: Valente ISABEL, Delfino Crenshaw\.br\Date and Time Signed: 01/16/23 15:53 EDT Patient Educationon 01-17-20 23 Patient Education ENT Earwax Buildup, Adult The ears produce a substance called earwax that helps keep bacteria out of the ear and protects the skin in the ear canal. Occasionally, earwax can build up in the ear and cause discomfort or hearing loss. What are the causes? This condition is caused by a buildup of earwax. Ear canals are self-cleaning. Ear wax is made in the outer part of the ear canal and generally falls out in small amounts over time. When the self-cleaning mechanism is not working, earwax builds up and can cause decreased hearing and discomfort. Attempting to clean ears with cotton swabs can push the earwax deep into the ear canal and cause decreased hearing and pain. What increases the risk? This condition is more likely to develop in people who: ? Clean their ears often with cotton swabs. ? Pick at their ears. ? Use earplugs or in-ear headphones often, or wear hearing aids. The following factors may also make you more likely to develop this condition: ? Being male. ? Being of older age. ? Naturally producing more earwax. ? Having narrow ear canals. ? Having earwax that is overly thick or sticky. ? Having excess hair in the ear canal. ? Having eczema. ? Being dehydrated. What are the signs or symptoms? Symptoms of this condition include: ? Reduced or muffled hearing. ? A feeling of fullness in the ear or feeling that the ear is plugged. ? Fluid coming from the ear. ? Ear pain or an itchy ear. ? Ringing in the ear. ? Coughing. ? Balance problems. ? An obvious piece of earwax that can be seen inside the ear canal. How is this diagnosed? This condition may be diagnosed based on: ? Your symptoms. ? Your medical history. ? An ear exam. During the exam, your health care provider will look into your ear with an instrument called an otoscope. You may have tests, including a hearing test. How is this treated? This condition may be treated by: ? Using ear drops to soften the earwax. ? Having the earwax removed by a health care provider. The health care provider may: ? Flush the ear with water. ? Use an instrument that has a loop on the end (curette). ? Use a suction device. ? Having surgery to remove the wax buildup. This may be done in severe cases. Follow these instructions at home: ? Take sujk-ntu-bqmyfjs and prescription medicines only as told by your health care provider. ? Do not put any objects, including cotton swabs, into your ear. You can clean the opening of your ear canal with a washcloth or facial tissue. ? Follow instructions from your health care provider about cleaning your ears. Do not overclean your ears. ? Drink enough fluid to keep your urine pale yellow. This will help to thin the earwax. ? Keep all follow-up visits as told. If earwax builds up in your ears often or if you use hearing aids, consider seeing your health care provider for routine, preventive ear cleanings. Ask your health care provider how often you should schedule your cleanings. ? If you have hearing aids, clean them according to instructions from the cuff turner machine operator and your health care provider. Contact a health care provider if: ? You have ear pain. ? You develop a fever. ? You have pus or other fluid coming from your ear. ? You have hearing loss. ? You have ringing in your ears that does not go away. ? You feel like the room is spinning (vertigo). ? Your symptoms do not improve with treatment. Get help right away if: ? You have bleeding from the affected ear. ? You have severe ear pain. Summary ? Earwax can build up in the ear and cause discomfort or hearing loss. ? The most common symptoms of this condition include reduced or muffled hearing, a feeling of fullness in the ear, or feeling that the ear is plugged. ? This condition may be diagnosed based on your symptoms, your medical history, and an ear exam. ? This condition may be treated by using ear drops to soften the earwax or by having the earwax removed by a health care provider. ? Do not put any objects, including cotton swabs, into your ear. You can clean the opening of your ear canal with a washcloth or facial tissue. This information is not intended to replace advice given to you by your health care provider. Make sure you discuss any questions you have with your health care provider. Document Revised: 08/16/2020 Document Reviewed: 08/16/2020 [employer] Patient Education ? 2022 [employer]. Ear Irrigation Ear irrigation is a procedure to wash dirt and wax out of your ear canal. This procedure is also called lavage. You may need ear irrigation if you are having trouble hearing because of a buildup of earwax. You may also have ear irrigation as part of the treatment for an ear infection. Getting wax and dirt out of your ear canal can help ear drops work better. Tell a health care provider about: ? Any allergies you have. ? All medicines you are taking, including vitamins, herbs, eye drops, cr (more content not included)... Normal [facility] HEMATOLOGYOrdered By: Megan Montana on 02-01-2022 Erythrocyte distribution width (RBC) [Ratio] 12.9 % Normal 10.9 - 14.2 % [facility] HemeAutoSS Hematocrit (Bld) [Volume fraction] 26.9 % Low 34.0 - 46.0 % [facility] HemeAutoSS Hemoglobin (Bld) [Mass/Vol] 8.7 g/dL Low 12.0 - 16.0 gm/dL [facility] HemeAutoSS MCH (RBC) [Entitic mass] 27.7 pg Normal 27.0 - 34.0 pg [facility] HemeAutoSS MCHC (RBC) [Mass/Vol] 32.2 g/dL Normal 31.4 - 36.0 gm/dL [facility]eAuto[facility] MCV (RBC) [Entitic vol] 85.9 fL Normal 80.0 - 100.0 fL [facility] Platelet mean volume (Bld) [Entitic vol] 9.1 fL Normal 6.4 - 10.8 fL [facility]eAuto[facility] Platelets (Bld) [#/Vol] 322.0 E9/L Normal 150.0 - 500.0 E9/L [facility]eAuto[facility] RBC (Bld) [#/Vol] 3.1 E12/L Low 4.3 - 5.9 E12/L [facility] WBC corrected for nucl RBC Auto (Bld) [#/Vol] 18.3 E9/L High 4.0 - 11.0 E9/L [facility] Comment on above: Result Comment: Ekta e reviewed by RS 02/01/2022 07:19:32 EDT. BLOOD BANKOrdered By: Guzman Nunez on 01-30-2022 ABO/Rh Interp Positive Invalid Interpretation Code [facility] BB Subsection ABSC Gel Interp Negative (01/30/22 6:08 PM) Normal [facility] BB Subsection HEMATOLOGYOrdered By: Guzman Nunez on 01-30-2022 Erythrocyte distribution width (RBC) [Ratio] 13.3 % Normal 10.9 - 14.2 % [facility] HemeAutoSS Hematocrit (Bld) [Volume fraction] 34.0 % Normal 34.0 - 46.0 % [facility] HemeAutoSS Hemoglobin (Bld) [Mass/Vol] 11.3 g/dL Low 12.0 - 16.0 gm/dL [facility] HemeAutoSS MCH (RBC) [Entitic mass] 28.4 pg Normal 27.0 - 34.0 pg [facility] HemeAutoSS MCHC (RBC) [Mass/Vol] 33.1 g/dL Normal 31.4 - 36.0 gm/dL [facility] HemeAutoSS MCV (RBC) [Entitic vol] 85.7 fL Normal 80.0 - 100.0 fL [facility]eAutoSS Platelet mean volume (Bld) [Entitic vol] 9.0 fL Normal 6.4 - 10.8 fL [facility] HemeAutoSS Platelets (Bld) [#/Vol] 387.0 E9/L Normal 150.0 - 500.0 E9/L [facility] RBC (Bld) [#/Vol] 4.0 E12/L Low 4.3 - 5.9 E12/L [facility]eAuto[facility] WBC corrected for nucl RBC Auto (Bld) [#/Vol] 14.4 E9/L High 4.0 - 11.0 E9/L [facility] URINALYSISOrdered By: Guzman Nunez on 01-30-2022 Bilirubin Ql (U) Negative (01/30/22 11:01 PM) Normal Negative [facility] UA Auto SS Clarity (U) Clear (01/30/22 11:01 PM) Normal Clear [facility] UA Auto SS Color (U) Yellow (01/30/22 11:01 PM) Normal Yellow [facility] UA Auto SS Epithelial cells.squamous LM.HPF (Urine sed) [#/Area] 0-2 /HPF Normal 0-2/HPF [facility] UA Aut o SS Glucose Test strip (U) [Mass/Vol] Negative (01/30/22 11:01 PM) Normal Negative [facility] UA Auto SS Hemoglobin Ql (U) Negative (01/30/22 11:01 PM) Normal Negative [facility] UA Auto SS Ketones (U) [Mass/Vol] Negative (01/30/22 11:01 PM) Normal Negative [facility] UA Auto SS Drumright.plasma/Lithiu m.RBC (Bld) [Mass ratio] 0-3 /HPF Normal 0-3/HPF [facility] UA Auto SS Nitrite Ql (U) Negative (01/30/22 11:01 PM) Normal Negative [facility] UA Auto SS pH (U) 7.0 *NA* (01/30/22 11:01 PM) Invalid Interpretation Code 5.0 - 9.0 [facility] UA Auto SS Protein (U) [Mass/Vol] Negative (01/30/22 11:01 PM) Normal Negative [facility] UA Auto SS Specific gravity (U) [Rel density] 1.020 *NA* (01/30/22 11:01 PM) Invalid Interpretation Code 1.005 - 1.030 [facility] UA Auto SS UA Spec Desc Lamas (01/30/22 11:01 PM) Normal [facility] UA Auto SS Urobilinogen Qn (U) [id number] {Kai'U}/dL Normal 0.0 - 1.0 EU/dL [facility] UA Auto SS WBC Auto Ql (U) Negative (01/30/22 11:01 PM) Normal Negative [facility] UA Auto SS WBC LM.HPF (Urine sed) [#/Area] 0-5 /HPF Normal 0-5/HPF [facility] UA Auto SS CHEMISTRYOrdered By: SYSTEM SYSTEM on 11-02-2021 Glucose 1 Hr post 50 g glucose PO [Mass/Vol] 91 mg/dL Normal 55 - 140 mg/dL [facility] Remisol HEMATOLOGYOrdered By: Prerna brumfield on 11-02-2021 Hematocrit (Bld) [Volume fraction] 32.6 % Low 34.0 - 46.0 % [facility] HemeAutoSS Hemoglobin (Bld) [Mass/Vol] 10.9 g/dL Low 12.0 - 16.0 gm/dL [facility] HemeAutoSS Vital Signs Date Time Vital Sign Value Performing Clinician Facility 04-11-2023 16:19-0500 Blood Pressure Location [facility] 04-11-2023 16:19-0500 Body temperature 97.7 [degF] [facility] 04-11-2023 16:19-0500 Diastolic blood pressure 75 mm[Hg] [facility] 04-11-2023 16:19-0500 Heart rate 90 /min [facility] 04-11-2023 16:19-0500 SaO2% (BldA) [Mass fraction] 99 % Damion Spasic [facility] 04-11-2023 16:19-0500 Systolic blood pressure 122 mm[Hg] Damion Spasic [facility] 01-16-2023 15:12-0400 Blood Pressure Location Damion Spasic [facility] 01-16-2023 15:12-0400 Body temperature 98.42 [degF] Damion Spasic [facility] 01-16-2023 15:12-0400 Diastolic blood pressure 78 mm[Hg] Damion Spasic [facility] 01-16-2023 15:12-0400 Heart rate 76 /min Damion Spasic [facility] 01-16-2023 15:12-0400 SaO2% (BldA) [Mass fraction] 98 % Damion Spasic [facility] 01-16-2023 15:12-0400 Systolic blood pressure 118 mm[Hg] Damion Spasic [facility] 02-01-2022 17:45-0400 [facility] Rounding Coleman Silver [facility] Comment on above: Result Comment: infant secured in carsea t and education show to pt. pt wheeled down to exit for discharge with baby in carseat on lap. secured in car in carseat base. 02-01-2022 16:00-0400 Hourly Rounding Coleman Silver [facility] Comment on above: Result Comment: discharge instructions e ducated to pt. pt verbalizes understanding and asks appropriate questions. RN stresses importance of scheduling 6 week post follow up appointment with Adrianne and pt verbalizes understanding. discharge papers signed with pt and RN witness. 02-01-2022 16:00-0400 Promise to Return Coleman Silver [facility] 02-01-2022 15:00-0400 Hourly Rounding Coleman Silver [facility] Comment on above: Result Comment: latch checked and assist ed by RN. pt appropriately returns demonstration back to RN 02-01-2022 15:00-0400 Promise to Return Coleman Silver [facility] 02-01-2022 14:00-0400 Promise to Return Coleman Silver [facility] 02-01-2022 13:45-0400 Blood Pressure Location Coleman Silver [facility] 02-01-2022 13:45-0400 Body temperature 97.7 [degF] Coleman [facility] 02-01-2022 13:45-0400 Diastolic blood pressure 68 mm[Hg] Coleman Silver [facility] 02-01-2022 13:45-0400 Heart rate 65 /min Coleman Silver [facility] 02-01-2022 13:45-0400 Mean blood pressure 88 mm[Hg] Coleamn Silver [facility] 02-01-2022 13:45-0400 Respiratory rate 18 /min Coleman [facility] 02-01-2022 13:45-0400 SaO2% (BldA) [Mass fraction] 100 % Coleman Silver [facility] 02-01-2022 13:45-0400 Systolic blood pressure 129 mm[Hg] Coleman Silver [facility] 02-01-2022 07:28-0400 Blood Pressure Location Coleman Silver [facility] 02-01-2022 07:28-0400 Body temperature 97.7 [degF] Coleman [facility] 02-01-2022 07:28-0400 Diastolic blood pressure 54 mm[Hg] Coleman [facility] 02-01-2022 07:28-0400 Heart rate 75 /min Coleman Silver [facility] 02-01-2022 07:28-0400 Mean blood pressure 66 mm[Hg] Coleman Silver [facility] 02-01-2022 07:28-0400 SaO2% (BldA) [Mass fraction] 98 % Coleman [facility] 02-01-2022 07:28-0400 Systolic blood pressure 91 mm[Hg] Coleman Silver [facility] 01-31-2022 21:00-0400 Blood Pressure Location Coleman Silver [facility] 01-31-2022 21:00-0400 Body temperature 98.24 [degF] Coleman [facility] 01-31-2022 21:00-0400 Diastolic blood pressure 63 mm[Hg] Coleman Silver [facility] 01-31-2022 21:00-0400 Heart rate 82 /min Coleman Silver [facility] 01-31-2022 21:00-0400 Mean blood pressure 76 mm[Hg] Coleman [facility] 01-31-2022 21:00-0400 Respiratory rate 18 /min Coleman [facility] 01-31-2022 21:00-0400 SaO2% (BldA) [Mass fraction] 98 % Coleman [facility] 01-31-2022 21:00-0400 Systolic blood pressure 102 mm[Hg] Coleman [facility] 01-31-2022 17:45-0400 Respiratory rate 20 /min Coleman [facility] 01-31-2022 13:20-0400 Mean blood pressure 78 mm[Hg] Coleman [facility] 12-21-2021 12:27-0400 Body temperature 98.42 [degF] Coleman [facility] 12-21-2021 12:27-0400 Diastolic blood pressure 59 mm[Hg] Coleman [facility] 12-21-2021 12:27-0400 Heart rate 76 /min Coleman [facility] 12-21-2021 12:27-0400 Mean blood pressure 78 mm[Hg] Coleman [facility] 12-21-2021 12:27-0400 Respiratory rate 20 /min Coleman [facility] 12-21-2021 12:27-0400 Systolic blood pressure 117 mm[Hg] Coleman [facility] 12-21-2021 12:15-0400 Blood Pressure Location Coleman Adrianne [facility] Encounters Encounter Date Encounter Type Care Provider Facility Start: 01-28-2024 End: 01-28-2024 ambulatory CARMELLA NI Not Available Start: 01-16-2024 End: 01-16-2024 ambulatory CARMELLA NI Not Available Start: 01-10-2024 End: 01-10-2024 Emergency department patient visit DK ZACARIAS [facility] Start: 01-08-2024 End: 01-08-2024 ambulatory CARMELLA NI Not Available Start: 01-04-2024 End: 01-04-2024 ambulatory ALMA LONG Facility: [place] Start: 01-04-2024 End: 01-04-2024 Patient encounter procedure ALMA LONG [facility] Start: 04-11-2023 End: 04-11-2023 ambulatory Damion V. Spasic Facility: [place] Start: 04-11-2023 End: 04-11-2023 Patient encounter procedure Damion V. Spasic [facility] Start: 01-16-2023 End: 01-16-2023 ambulatory Damion V. Spasic Facility: [place] Start: 01-16-2023 End: 01-16-2023 Patient encounter procedure Damion V. Spasic [facility] Start: 01-30-2022 End: 02-01-2022 Evaluation and management of inpatient Coleman Silver [facility] Start: 01-16-2022 End: 01-16-2022 Lab Drop off Coleman Silver [facility] Start: 12-21-2021 End: 12-21-2021 OB Triage Coleman Silver [facility] Start: 11-02-2021 End: 11-02-2021 Patient encounter procedure Coleman Silver [facility] Procedures Date Procedure Procedure Detail Performing Clinician Structure of left wr ist (body structure) Coleman Silver Immunizations Immunization Date Immunization Notes Care Provider Kam hudson 06-09-2009 HPV, unspecified formulation Damion Spasic [facility] 02-05-2009 HPV, unspecified formulation Damion Spasic [facility] 02-05-2009 influenza virus vaccine, unspecified formulation Damion Spasic [facility] 12-03-2008 HPV, unspecified formulation Damion Spasic [facility] 12-03-2008 meningococcal ACWY vaccine, unspecified formulation Damion Spasic [facility] 12-03-2008 tetanus toxoid, reduced diphtheria toxoid, and acellular pertussis vaccine, adsorbed Damion Spasic [facility] 12-03-2008 varicella virus vaccine Damion Spasic [facility] 12-05-2001 DTaP, unspecified formulation Damion Spasic [facility] 12-05-2001 measles, mumps and rubella virus vaccine Damion Spasic [facility] 04-06-1998 DTaP, unspecified formulation Damion Spasic [facility] 04-06-1998 haemophilus influenz ae type b vaccine, PRP-OMP conjugate Damion Spasic [facility] 04-06-1998 measles, mumps and rubella virus vaccine Damion Spasic [facility] 04-06-1998 poliovirus vaccine, unspecified formulation Damion Spasic [facility] 04-06-1998 varicella virus vaccine Damion Spasic [facility] 08-25-1997 DTaP, unspecified formulation Damion Spasic [facility] 08-25-1997 haemophilus influenz ae type b vaccine, PRP-OMP conjugate Damion Spasic [facility] 08-25-1997 hepatitis B vaccine, pediatric or pediatric/adolescent dosage Damion Spasic [facility] 02-08-1997 haemophilus influenz ae type b vaccine, PRP-OMP conjugate Damion Spasic [facility] 02-08-1997 poliovirus vaccine, unspecified formulation Damion Spasic [facility] 1996 DTaP, unspecified formulation Damion Spasic [facility] 1996 haemophilus influenz ae type b vaccine, PRP-OMP conjugate Damion Spasic [facility] 1996 hepatitis B vaccine, pediatric or pediatric/adolescent dosage Damion Spasic [facility] 1996 poliovirus vaccine, unspecified formulation Damion Spasic [facility] 1996 hepatitis B vaccine, pediatric or pediatric/adolescent dosage Damion Spasic [facility] NEGATED: Highlighted row has not occurred!01-16-2023 influenza virus vaccine, unspecified formulation Damion Spasic [facility] NEGATED: Highlighted row has not occurred!01-16-2023 SARS-CoV-2 mRNA (tayruth 5y-11y) vaccine Damion Spasic [facility] Payers Date Payer Category Payer Unknown [id number] 1996 Unknown [id number] [id number] 1996 Unknown [id number] [id number] [id number] 1996 Unknown [id number] 2.16.8 [id number] 1996 Unknown [id number] 2.16.8 [id number] 1996 Unknown [id number] 2.16.84 [id number] 1996 Unknown [id number] [id number] [id number] 1996 Unknown [id number] [id number] Social History Date Type Detail Facility Start: 05-20-2021 End: 04-11-2023 Tobacco smoking status Heavy tobacco smoker (finding) [facility] Tobacco smoking status Never [facility] Sex Assigned At Female [facility] Functional Status Date Assessment Result Facility 04-11-2023 Functional Status N/A [facility] 01-16-2023 Functional Status N/A [facility] 01-30-2022 Functional Status No [facility] 12-21-2021 Functional Status N/A [facility] Hospital Discharge instructions 04-11-2023 Note Date & Type Note Facility 04-11-2023 Hospital Discharg e instructions Patient Education 04/11/2023 17:10:01 Nausea and Vomiting, Adult Nausea and Vomiting, Adult Nausea is the feeling that you have an upset stomach or that you are about to vomit. As nausea gets worse, it can lead to vomiting. Vomiting is when stomach contents forcefully come out of your mouth as a result of nausea. Vomiting can make you feel weak and cause you to become dehydrated. Dehydration can make you feel tired and thirsty, cause you to have a dry mouth, and decrease how often you urinate. Older adults and people with other diseases or a weak disease-fighting system (immune system) are at higher risk for dehydration. It is important to treat your nausea and vomiting as told by your health care provider. Follow these instructions at home: Watch your symptoms for any changes. Tell your health care provider about them. Eating and drinking Take an oral rehydration solution (ORS). This is a drink that is sold at pharmacies and retail stores. Drink clear fluids slowly and in small amounts as you are able. Clear fluids include water, ice chips, low-calorie sports drinks, and fruit juice that has water added (diluted fruit juice). Eat bland, kxun-bk-lbsfcq foods in small amounts as you are able. These foods include bananas, applesauce, rice, lean meats, toast, and crackers. Avoid fluids that contain a lot of sugar or caffeine, such as energy drinks, sports drinks, and soda. Avoid alcohol. Avoid spicy or fatty foods. General instructions Take sppz-phs-dikdgno and prescription medicines only as told by your health care provider. Drink enough fluid to keep your urine pale yellow. Wash your hands often using soap and water for at least 20 seconds. If soap and water are not available, use hand product blending supervisor. Make sure that everyone in your household washes their hands well and often. Rest at home while you recover. Watch your condition for any changes. Take slow and deep breaths when you feel nauseous. Keep all follow-up visits. This is important. Contact a health care provider if: Your symptoms get worse. You have new symptoms. You have a fever. You cannot drink fluids without vomiting. Your nausea does not go away after 2 days. You feel light-headed or dizzy. You have a headache. You have muscle cramps. You have a rash. You have pain while urinating. Get help right away if: You have pain in your chest, neck, arm, or jaw. You feel extremely weak or you faint. You have persistent vomiting. You have vomit that is bright red or looks like black coffee grounds. You have bloody or black stools (feces) or stools that look like tar. You have a severe headache, a stiff neck, or both. You have severe pain, cramping, or bloating in your abdomen. You have difficulty breathing, or you are breathing very quickly. Your heart is beating very quickly. Your skin feels cold and clammy. You feel confused. You have signs of dehydration, such as: ?Dark urine, very little urine, or no urine. ?Cracked lips. ?Dry mouth. ?Sunken eyes. ?Sleepiness. ?Weakness. These symptoms may be an emergency. Get help right away. Call 911. Do not wait to see if the symptoms will go away. Do not drive yourself to the hospital. Summary Nausea is the feeling that you have an upset stomach or that you are about to vomit. As nausea gets worse, it can lead to vomiting. Vomiting can make you feel weak and cause you to become dehydrated. Follow instructions from your health care provider about eating and drinking to prevent dehydration. Take rjgx-ikv-mixbuyt and prescription medicines only as told by your health care provider. Contact your health care provider if your symptoms get worse, or you have new symptoms. Keep all follow-up visits. This is important. This information is not intended to replace advice given to you by your health care provider. Make sure you discuss any questions you have with your health care provider. Document Revised: 11/03/2021 Document Reviewed: 11/03/2021 [employer] Patient Education 2022 [employer]. Follow Up Care 04/11/2023 16:03:12 With:Breonna NICOLE CNP Address: [address] [place] [address]- When: Unknown [facility] Hospital Discharge instructions 01-16-2023 Note Date & Type Note Facility 01-16-2023 Hospital Discharge instructions Patient Education 01/16/2023 15:52:50 BMI for Adults BMI for Adults What is BMI? Body mass index (BMI) is a number that is calculated from a person's weight and height. BMI can help estimate how much of a person's weight is composed of fat. BMI does not measure body fat directly. Rather, it is an alternative to procedures that directly measure body fat, which can be difficult and expensive. BMI can help identify people who may be at higher risk for certain medical problems. What are BMI measurements used for? BMI is used as a screening tool to identify possible weight problems. It helps determine whether a person is obese, overweight, a healthy weight, or underweight. BMI is useful for: Identifying a weight problem that may be related to a medical condition or may increase the risk for medical problems. Promoting changes, such as changes in diet and exercise, to help reach a healthy weight. BMI screening can be repeated to see if these changes are working. How is BMI calculated? BMI involves measuring your weight in relation to your height. Both height and weight are measured, and the BMI is calculated from those numbers. This can be done either in [place] or metric measurements. Note that charts and online BMI calculators are available to help you find your BMI quickly and easily without having to do these calculations yourself. To calculate your BMI in [place] measurements: 1.Measure your weight in pounds (lb). 2.Multiply the number of pounds by 703. For example, for a person who weighs 180 lb, multiply that number by 703, which equals 126,540. 3.Measure your height in inches. Then multiply that number by itself to get a measurement called inches squared. For example, for a person who is 70 inches tall, the inches squared measurement is 70 inches x 70 inches, which equals 4,900 inches squared. 4.Divide the total from step 2 (number of lb x 703) by the total from step 3 (inches squared): 126,540 4,900 = 25.8. This is your BMI. To calculate your BMI in metric measurements: 1.Measure your weight in kilograms (kg). 2.Measure your height in meters (m). Then multiply that number by itself to get a measurement called meters squared. For example, for a person who is 1.75 m tall, the meters squared measurement is 1.75 m x 1.75 m, which is equal to 3.1 meters squared. 3.Divide the number of kilograms (your weight) by the meters squared number. In this example: 70 3.1 = 22.6. This is your BMI. What do the results mean? BMI charts are used to identify whether you are underweight, normal weight, overweight, or obese. The following guidelines will be used: Underweight: BMI less than 18.5. Normal weight: BMI between 18.5 and 24.9. Overweight: BMI between 25 and 29.9. Obese: BMI of 30 or above. Keep these notes in mind: Weight includes both fat and muscle, so someone with a muscular build, such as an athlete, may have a BMI that is higher than 24.9. In cases like these, BMI is not an accurate measure of body fat. To determine if excess body fat is the cause of a BMI of 25 or higher, further assessments may need to be done by a health care provider. BMI is usually interpreted in the same way for men and women. Where to find more information For more information about BMI, including tools to quickly calculate your BMI, go to these websites: Centers for Disease Control and Prevention: www.cdc.gov [place] [employer]: www.heart.org National Heart, Lung, and Blood [place]: www.nhlbi.nih.gov Summary Body mass index (BMI) is a number that is calculated from a person's weight and height. BMI may help estimate how much of a person's weight is composed of fat. BMI can help identify those who may be at higher risk for certain medical problems. BMI can be measured using [place] measurements or metric measurements. BMI charts are used to identify whether you are underweight, normal weight, overweight, or obese. This information is not intended to replace advice given to you by your health care provider. Make sure you discuss any questions you have with your health care provider. Document Revised: 01/20/2020 Document Reviewed: 11/27/2019 [employer] Patient Education 2022 [employer]. 01/16/2023 15:52:47 Health Risks of Smoking Health Risks of Smoking Smoking tobacco is very bad for your health. Tobacco smoke contains many toxic chemicals that can damage every part of your body. Secondhand smoke can be harmful to those around you. Tobacco or nicotine use can cause many long-term (chronic) diseases. Smoking is difficult to quit because a chemical in tobacco, called nicotine, causes addiction or dependence. When you smoke and inhale, nicotine is absorbed quickly into your bloodstream through your lungs. Both inhaled and non-inhaled nicotine may be addictive. How can quitting affect me? There are health benefits of quitting smoking. Some benefits happen right away and others take time. Benefits may include: Blood flow, blood pressure, heart rate, and lung capacity may begin to improve. However, any lung damage that has already occurred cannot be repaired. Respiratory symptoms from smoking, such as nasal congestion and cough, may improve over time. Your risk of heart disease, stroke, and cancer is reduced. The overall quality of your health may improve. You may save money, as you will not spend money on tobacco products and may spend less money on smoking-related health issues. What can increase my risk? Smoking harms nearly every organ in the body. People who smoke tobacco have a shorter life expectancy and an increased risk of many serious medical problems. These include: More respiratory infections, such as colds and pneumonia. Cancer. Heart disease. Stroke. Chronic respiratory diseases. Delayed wound healing and increased risk of complications during surgery. Problems with reproduction, , and childbirth, such as infertility, early (premature) births, stillbirths, and defects. Secondhand smoke exposure to children increases the risk of: Sudden infant syndrome (SIDS). Infections in the nose, throat, or airways (respiratory infections). Chronic respiratory symptoms. What actions can I take to quit? Smoking is an addiction that affects both your body and your mind, and long-time habits can be hard to change. Your health care provider can recommend: Nicotine replacement products, such as patches, gum, and nasal sprays. Use these products only as directed. Do not replace cigarette smoking with electronic cigarettes, which are commonly called e-cigarettes. The safety of e-cigarettes is not known, and some may contain harmful chemicals. Programs and community resources, which may include group support, education, or talk therapy. Prescription medicines to help reduce cravings. A combination of two or more quit methods, which may increase the success of quitting. Where to find support Follow the recommendations from your health care provider about support groups and other assistance. You can also visit: U.S. Department of Health and Human Services: www.smokefree.gov [place] [employer]: www.freedomfromsmoking.org [place] [employer]: www.heart.org Where to find more information Centers for Disease Control and Prevention: www.cdc.gov World Health Organization: www.who.int Summary Smoking tobacco is very bad for your health. Tobacco smoke contains many toxic chemicals that can damage every part of the body. Smoking is difficult to quit because a chemical in tobacco, called nicotine, causes addiction or dependence. There are immediate and long-term health benefits of quitting smoking. A combination of two or more quit methods may increase the success of quitting. This information is not intended to replace advice given to you by your health care provider. Make sure you discuss any questions you have with your health care provider. Document Revised: 05/01/2022 Document Reviewed: 05/01/2022 [employer] Patient Education 2022 [employer]. 01/16/2023 15:52:45 Earwax Buildup, Adult Earwax Buildup, Adult The ears produce a substance called earwax that helps keep bacteria out of the ear and protects the skin in the ear canal. Occasionally, earwax can build up in the ear and cause discomfort or hearing loss. What are the causes? This condition is caused by a buildup of earwax. Ear canals are self-cleaning. Ear wax is made in the outer part of the ear canal and generally falls out in small amounts over time. When the self-cleaning mechanism is not working, earwax builds up and can cause decreased hearing and discomfort. Attempting to clean ears with cotton swabs can push the earwax deep into the ear canal and cause decreased hearing and pain. What increases the risk? This condition is more likely to develop in people who: Clean their ears often with cotton swabs. Pick at their ears. Use earplugs or in-ear headphones often, or wear hearing aids. The following factors may also make you more likely to develop this condition: Being male. Being of older age. Naturally producing more earwax. Having narrow ear canals. Having earwax that is overly thick or sticky. Having excess hair in the ear canal. Having eczema. Being dehydrated. What are the signs or symptoms? Symptoms of this condition include: Reduced or muffled hearing. A feeling of fullness in the ear or feeling that the ear is plugged. Fluid coming from the ear. Ear pain or an itchy ear. Ringing in the ear. Coughing. Balance problems. An obvious piece of earwax that can be seen inside the ear canal. How is this diagnosed? This condition may be diagnosed based on: Your symptoms. Your medical history. An ear exam. During the exam, your health care provider will look into your ear with an instrument called an otoscope. You may have tests, including a hearing test. How is this treated? This condition may be treated by: Using ear drops to soften the earwax. Having the earwax removed by a health care provider. The health care provider may: ?Flush the ear with water. ?Use an instrument that has a loop on the end (curette). ?Use a suction device. Having surgery to remove the wax buildup. This may be done in severe cases. Follow these instructions at home: Take mnld-oao-jnlromt and prescription medicines only as told by your health care provider. Do not put any objects, including cotton swabs, into your ear. You can clean the opening of your ear canal with a washcloth or facial tissue. Follow instructions from your health care provider about cleaning your ears. Do not overclean your ears. Drink enough fluid to keep your urine pale yellow. This will help to thin the earwax. Keep all follow-up visits as told. If earwax builds up in your ears often or if you use hearing aids, consider seeing your health care provider for routine, preventive ear cleanings. Ask your health care provider how often you should schedule your cleanings. If you have hearing aids, clean them according to instructions from the cuff turner machine operator and your health care provider. Contact a health care provider if: You have ear pain. You develop a fever. You have pus or other fluid coming from your ear. You have hearing loss. You have ringing in your ears that does not go away. You feel like the room is spinning (vertigo). Your symptoms do not improve with treatment. Get help right away if: You have bleeding from the affected ear. You have severe ear pain. Summary Earwax can build up in the ear and cause discomfort or hearing loss. The most common symptoms of this condition include reduced or muffled hearing, a feeling of fullness in the ear, or feeling that the ear is plugged. This condition may be diagnosed based on your symptoms, your medical history, and an ear exam. This condition may be treated by using ear drops to soften the earwax or by having the earwax removed by a health care provider. Do not put any objects, including cotton swabs, into your ear. You can clean the opening of your ear canal with a washcloth or facial tissue. This information is not intended to replace advice given to you by your health care provider. Make sure you discuss any questions you have with your health care provider. Document Revised: 08/16/2020 Document Reviewed: 08/16/2020 [employer] Patient Education 2022 [employer]. 01/16/2023 15:52:44 Ear Irrigation Ear Irrigation Ear irrigation is a procedure to wash dirt and wax out of your ear canal. This procedure is also called lavage. You may need ear irrigation if you are having trouble hearing because of a buildup of earwax. You may also have ear irrigation as part of the treatment for an ear infection. Getting wax and dirt out of your ear canal can help ear drops work better. Tell a health care provider about: Any allergies you have. All medicines you are taking, including vitamins, herbs, eye drops, creams, and smpm-yqq-dubffpt medicines. Any problems you or family members have had with anesthetic medicines. Any blood disorders you have. Any surgeries you have had. This includes any ear surgeries. Any medical conditions you have. Whether you are or may be . What are the risks? Generally, this is a safe procedure. However, problems may occur, including: Infection. Pain. Hearing loss. Fluid and debris being pushed through the eardrum and into the middle ear. This can occur if there are holes in the eardrum. Ear irrigation failing to work. What happens before the procedure? You will talk with your provider about the procedure and plan. You may be given ear drops to put in your ear 15 20 minutes before irrigation. This helps loosen the wax. What happens during the procedure? A syringe is filled with water or saline solution, which is made of salt and water. The syringe is gently inserted into the ear canal. The fluid is used to flush out wax and other debris. The procedure may vary among health care providers and hospitals. What can I expect after the procedure? After an ear irrigation, follow instructions given to you by your health care provider. Follow these instructions at home: Using ear irrigation kits Ear irrigation kits are available for use at home. Ask your health care provider if this is an option for you. In general, you should: Use a home irrigation kit only as told by your health care provider. Read the package instructions carefully. Follow the directions for using the syringe. Use water that is room temperature. Do not do ear irrigation at home if you: Have diabetes. Diabetes increases the risk of infection. Have a hole or tear in your eardrum. Have tubes in your ears. Have had any ear surgery in the past. Have been told not to irrigate your ears. Cleaning your ears Clean the outside of your ear with a soft washcloth daily. If told by your health care provider, use a few drops of baby oil, mineral oil, glycerin, hydrogen peroxide, or digt-xhb-goqrepx earwax softening drops. Do not use cotton swabs to clean your ears. These can push wax down into the ear canal. Do not put anything into your ears to try to remove wax. This includes ear candles. General instructions Take yudf-qgu-ijuduwd and prescription medicines only as told by your health care provider. If you were prescribed an antibiotic medicine, use it as told by your health care provider. Do not stop using the antibiotic even if your condition improves. Keep the ear clean and dry by following the instructions from your health care provider. Keep all follow-up visits. This is important. Visit your health care provider at least once a year to have your ears and hearing checked. Contact a health care provider if: Your hearing is not improving or is getting worse. You have pain or redness in your ear. You are dizzy. You have ringing in your ears. You have nausea or vomiting. You have fluid, blood, or pus coming out of your ear. Summary Ear irrigation is a procedure to wash dirt and wax out of your ear canal. This procedure is also called lavage. To perform ear irrigation, ear drops may be put in your ear 15 20 minutes before irrigation. Water or saline solution will be used to flush out earwax and other debris. You may be able to irrigate your ears at home. Ask your health care provider if this is an option for you. Follow your health care provider's instructions. Clean your ears with a soft cloth after irrigation. Do not use cotton swabs to clean your ears. These can push wax down into the ear canal. This information is not intended to replace advice given to you by your health care provider. Make sure you discuss any questions you have with your health care provider. Document Revised: 08/16/2020 Document Reviewed: 08/16/2020 [employer] Patient Education 2022 [employer]. 01/16/2023 15:52:42 Otitis Media, Adult Otitis Media, Adult Otitis media occurs when there is inflammation and fluid in the middle ear with signs and symptoms of an acute infection. The middle ear is a part of the ear that contains bones for hearing as well as air that helps send sounds to the brain. When infected fluid builds up in this space, it causes pressure and can lead to an ear infection. The eustachian tube connects the middle ear to the back of the nose (nasopharynx) and normally allows air into the middle ear. If the eustachian tube becomes blocked, fluid can build up and become infected. What are the causes? This condition is caused by a blockage in the eustachian tube. This can be caused by mucus or by swelling of the tube. Problems that can cause a blockage include: A cold or other upper respiratory infection. Allergies. An irritant, such as tobacco smoke. Enlarged adenoids. The adenoids are areas of soft tissue located high in the back of the throat, behind the nose and the roof of the mouth. They are part of the body's defense system (immune system). A mass in the nasopharynx. Damage to the ear caused by pressure changes (barotrauma). What increases the risk? You are more likely to develop this condition if you: Smoke or are exposed to tobacco smoke. Have an opening in the roof of your mouth (cleft palate). Have gastroesophageal reflux. Have an immune system disorder. What are the signs or symptoms? Symptoms of this condition include: Ear pain. Fever. Decreased hearing. Tiredness (lethargy). Fluid leaking from the ear, if the eardrum is ruptured or has burst. Ringing in the ear. How is this diagnosed? This condition is diagnosed with a physical exam. During the exam, your health care provider will use an instrument called an otoscope to look in your ear and check for redness, swelling, and fluid. He or she will also ask about your symptoms. Your health care provider may also order tests, such as: A pneumatic otoscopy. This is a test to check the movement of the eardrum. It is done by squeezing a small amount of air into the ear. A tympanogram. This is a test that shows how well the eardrum moves in response to air pressure in the ear canal. It provides a graph for your health care provider to review. How is this treated? This condition can go away on its own within 3 5 days. But if the condition is caused by a bacterial infection and does not go away on its own, or if it keeps coming back, your health care provider may: Prescribe antibiotic medicine to treat the infection. Prescribe or recommend medicines to control pain. Follow these instructions at home: Take pucj-eib-jtypqgq and prescription medicines only as told by your health care provider. If you were prescribed an antibiotic medicine, take it as told by your health care provider. Do not stop taking the antibiotic even if you start to feel better. Keep all follow-up visits. This is important. Contact a health care provider if: You have bleeding from your nose. There is a lump on your neck. You are not feeling better in 5 days. You feel worse instead of better. Get help right away if: You have severe pain that is not controlled with medicine. You have swelling, redness, or pain around your ear. You have stiffness in your neck. A part of your face is not moving (paralyzed). The bone behind your ear (mastoid bone) is tender when you touch it. You develop a severe headache. Summary Otitis media is redness, soreness, and swelling of the middle ear, usually resulting in pain and decreased hearing. This condition can go away on its own within 3 5 days. If the problem does not go away in 3 5 days, your health care provider may give you medicines to treat the infection. If you were prescribed an antibiotic medicine, take it as told by your health care provider. Follow all instructions that were given to you by your health care provider. This information is not intended to replace advice given to you by your health care provider. Make sure you discuss any questions you have with your health care provider. Document Revised: 08/07/2021 Document Reviewed: 08/07/2021 [employer] Patient Education 2022 [employer]. Follow Up Care 01/16/2023 14:31:22 With:Breonna NICOLE CNP Address:Unknown When: Unknown [facility] Discharge instructions 02-01-2022 Note Date & Type Note Facility 02-01-2022 Hospital Discharg e instructions Patient Education 02/01/2022 07:57:10 Care After Vaginal Delivery Care After Vaginal Delivery This sheet gives you information about how to care for yourself from the time you deliver your baby to up to 6 12 weeks after delivery ( period). Your health care provider may also give you more specific instructions. If you have problems or questions, contact your health care provider. Follow these instructions at home: Vaginal bleeding It is normal to have vaginal bleeding (lochia) after delivery. Wear a sanitary pad for vaginal bleeding and discharge. ?During the first week after delivery, the amount and appearance of lochia is often similar to a menstrual period. ?Over the next few weeks, it will gradually decrease to a dry, yellow-brown discharge. ?For most women, lochia stops completely by 4 6 weeks after delivery. Vaginal bleeding can vary from woman to woman. Change your sanitary pads frequently. Watch for any changes in your flow, such as: ?A sudden increase in volume. ?A change in color. ?Large blood clots. If you pass a blood clot from your vagina, save it and call your health care provider to discuss. Do not flush blood clots down the toilet before talking with your health care provider. Do not use tampons or douches until your health care provider says this is safe. If you are not , your period should return 6 8 weeks after delivery. If you are feeding your child breast milk only (exclusive ), your period may not return until you stop . Perineal care Keep the area between the vagina and the anus (perineum) clean and dry as told by your health care provider. Use medicated pads and pain-relieving sprays and creams as directed. If you had a cut in the perineum (episiotomy) or a tear in the vagina, check the area for signs of infection until you are healed. Check for: ?More redness, swelling, or pain. ?Fluid or blood coming from the cut or tear. ?Warmth. ?Pus or a bad smell. You may be given a squirt bottle to use instead of wiping to clean the perineum area after you go to the bathroom. As you start healing, you may use the squirt bottle before wiping yourself. Make sure to wipe gently. To relieve pain caused by an episiotomy, a tear in the vagina, or swollen veins in the anus (hemorrhoids), try taking a warm sitz bath 2 3 times a day. A sitz bath is a warm water bath that is taken while you are sitting down. The water should only come up to your hips and should cover your buttocks. Breast care Within the first few days after delivery, your breasts may feel heavy, full, and uncomfortable (breast engorgement). Milk may also leak from your breasts. Your health care provider can suggest ways to help relieve the discomfort. Breast engorgement should go away within a few days. If you are : ?Wear a bra that supports your breasts and fits you well. ?Keep your nipples clean and dry. Apply creams and ointments as told by your health care provider. ?You may need to use breast pads to absorb milk that leaks from your breasts. ?You may have uterine contractions every time you breastfeed for up to several weeks after delivery. Uterine contractions help your uterus return to its normal size. ?If you have any problems with , work with your health care provider or client care consultant. If you are not : ?Avoid touching your breasts a lot. Doing this can make your breasts produce more milk. ?Wear a good-fitting bra and use cold packs to help with swelling. ?Do not squeeze out (express) milk. This causes you to make more milk. Intimacy and sexuality Ask your health care provider when you can engage in sexual activity. This may depend on: ?Your risk of infection. ?How fast you are healing. ?Your comfort and desire to engage in sexual activity. You are able to get after delivery, even if you have not had your period. If desired, talk with your health care provider about methods of control (contraception). Medicines Take cbip-mhq-epueuth and prescription medicines only as told by your health care provider. If you were prescribed an antibiotic medicine, take it as told by your health care provider. Do not stop taking the antibiotic even if you start to feel better. Activity Gradually return to your normal activities as told by your health care provider. Ask your health care provider what activities are safe for you. Rest as much as possible. Try to rest or take a nap while your baby is sleeping. Eating and drinking Drink enough fluid to keep your urine pale yellow. Eat high-fiber foods every day. These may help prevent or relieve constipation. High-fiber foods include: ?Whole grain cereals and breads. ?Brown rice. ?Beans. ?Fresh fruits and vegetables. Do not try to lose weight quickly by cutting back on calories. Take your vitamins until your checkup or until your health care provider tells you it is okay to stop. Lifestyle Do not use any products that contain nicotine or tobacco, such as cigarettes and e-cigarettes. If you need help quitting, ask your health care provider. Do not drink alcohol, especially if you are . General instructions Keep all follow-up visits for you and your baby as told by your health care provider. Most women visit their health care provider for a checkup within the first 3 6 weeks after delivery. Contact a health care provider if: You feel unable to cope with the changes that your child brings to your life, and these feelings do not go away. You feel unusually sad or worried. Your breasts become red, painful, or hard. You have a fever. You have trouble holding urine or keeping urine from leaking. You have little or no interest in activities you used to enjoy. You have not breastfed at all and you have not had a menstrual period for 12 weeks after delivery. You have stopped and you have not had a menstrual period for 12 weeks after you stopped . You have questions about caring for yourself or your baby. You pass a blood clot from your vagina. Get help right away if: You have chest pain. You have difficulty breathing. You have sudden, severe leg pain. You have severe pain or cramping in your lower abdomen. You bleed from your vagina so much that you fill more than one sanitary pad in one hour. Bleeding should not be heavier than your heaviest period. You develop a severe headache. You faint. You have blurred vision or spots in your vision. You have bad-smelling vaginal discharge. You have thoughts about hurting yourself or your baby. If you ever feel like you may hurt yourself or others, or have thoughts about taking your own life, get help right away. You can go to the nearest emergency department or call: Your local emergency services (911 in the [place] A suicide crisis helpline, such as the National Suicide Prevention Lifeline at . This is open 24 hours a day. Summary The period of time right after you deliver your up to 6 12 weeks after delivery is called the period. Gradually return to your normal activities as told by your health care provider. Keep all follow-up visits for you and your baby as told by your health care provider. This information is not intended to replace advice given to you by your health care provider. Make sure you discuss any questions you have with your health care provider. Document Released: 02/24/2008 Document Revised: 05/02/2018 Document Reviewed: 02/10/2018 [employer] Patient Education 2020 [employer]. 02/01/2022 07:57:10 Baby Blues Baby Blues The period begins right after the of a baby. During this time, there is often a lot of drew and excitement. It is also a time of many changes in the life of the parents. No matter how many times a mother gives , each child brings new challenges to the family, including different ways of relating to one another. It is common to have feelings of excitement along with confusing changes in moods, emotions, and thoughts. You may feel happy one minute and sad or stressed the next. These feelings of sadness usually happen in the period right after you have your baby, and they go away within a week or two. This is called the baby blues. What are the causes? There is no known cause of baby blues. It is likely caused by a combination of factors. However, changes in hormone levels after childbirth are believed to trigger some of the symptoms. Other factors that can play a role in these mood changes include: Lack of sleep. Stressful life events, such as poverty, caring for a loved one, or of a loved one. Genetics. What are the signs or symptoms? Symptoms of this condition include: Brief changes in mood, such as going from extreme happiness to sadness. Decreased concentration. Difficulty sleeping. Crying spells and tearfulness. Loss of appetite. Irritability. Anxiety. If the symptoms of baby blues last for more than 2 weeks or become more severe, you may have depression. How is this diagnosed? This condition is diagnosed based on an evaluation of your symptoms. There are no medical or lab tests that lead to a diagnosis, but there are various questionnaires that a health care provider may use to identify women with the baby blues or depression. How is this treated? Treatment is not needed for this condition. The baby blues usually go away on their own in 1 2 weeks. Social support is often all that is needed. You will be encouraged to get adequate sleep and rest. Follow these instructions at home: Lifestyle Get as much rest as you can. Take a nap when the baby sleeps. Exercise regularly as told by your health care provider. Some women find yoga and walking to be helpful. Eat a balanced and nourishing diet. This includes plenty of fruits and vegetables, whole grains, and lean proteins. Do little things that you enjoy. Have a cup of tea, take a bubble bath, read your favorite magazine, or listen to your favorite music. Avoid alcohol. Ask for help with button decorating machine operator, cooking, grocery shopping, or running errands. Do not try to do everything yourself. Consider hiring a fixed interest dealer to help. This is a professional who specializes in providing support to new mothers. Try not to make any major life changes during or right after giving . This can add stress. General instructions Talk to people close to you about how you are feeling. Get support from your partner, family members, friends, or other new moms. You may want to join a support group. Find ways to cope with stress. This may include: ?Writing your thoughts and feelings in a journal. ?Spending time outside. ?Spending time with people who make you laugh. Try to stay positive in how you think. Think about the things you are grateful for. Take nmgx-aqj-uqzrjyf and prescription medicines only as told by your health care provider. Let your health care provider know if you have any concerns. Keep all visits as told by your health care provider. This is important. Contact a health care provider if: Your baby blues do not go away after 2 weeks. Get help right away if: You have thoughts of taking your own life (suicidal thoughts). You think you may harm the baby or other people. You see or hear things that are not there (hallucinations). Summary After giving , you may feel happy one minute and sad or stressed the next. Feelings of sadness that happen right after the baby is born and go away after a week or two are called the baby blues. You can manage the baby blues by getting enough rest, eating a healthy diet, exercising, spending time with supportive people, and finding ways to cope with stress. If feelings of sadness and stress last longer than 2 weeks or get in the way of caring for your baby, talk to your health care provider. This may mean you have depression. This information is not intended to replace advice given to you by your health care provider. Make sure you discuss any questions you have with your health care provider. Document Released: 01/31/2005 Document Revised: 08/21/2019 Document Reviewed: 06/25/2017 [employer] Patient Education 2019 [employer] Follow Up Care 12/22/2021 00:47:00 With:Coleman Silver Address: [address], [facility] [address] [place] [phone] Business (1) When:6 weeks [facility] Evaluation + Plan note 01-31-2022 Note Date & Type Note Facility 01-31-2022 Evaluation + Plan note Extrac lalito from: Title:ANES L&D POST EPIDURAL NOTE Author:Kiran Zimmer DO Date:01/31/22 Plan Transfer/ Discharge: Patient can be discharged from anesthesia care. Condition good. Extracted from: Title:LABOR AND DELIVERY EPIDURAL Author:Kiran Zimmer DO Date:01/30/22 Impression and Plan Extracted from: Title:ANES L/D EPIDURAL PREOP Author:Devon Zimmer DO Date:01/30/22 Plan [place] [employer]esthesi[employer] (ASA) physical status classification: Class II. Anesthetic Preoperative Plan Anesthesia: [facility] Labor and delivery epidural.. Anesthetic plan, risks, benefits, and alternatives discussed with the patient and/or family. Patient verbalized understanding. Risks discussed: nausea, vomiting, headache, serious complications, problems with the heart and lungs, allergic reactions, failed block, incomplete block, high spinal, catheter tip dislodgement, bleeding, infection, nerve injury, headache, low blood pressure, back pain. Patient verbalized understanding. Pt questions were addressed. . Informed consent was given. [facility] Evaluation + Plan note 01-16-2022 Note Date & Type Note Facility 01-16-2022 Evaluation + Plan note Diagnostic Tests PendingGroup B Streptococcus colonization by PCR 01/16/22 [facility] Hospital Discharge instructions 12-21-2021 Note Date & Type Note Facility 12-21-2021 Hospital Discharg e instructions Follow Up Care 12/21/2021 12:14:12 With:Coleman Silver Address: [address] [facility] [address] [place] [phone]- Business (1) When:12/25/2021 Comments:Call for any problems.Call for fever > 100.5 FCall for severe abdominal painCall physician for heavy vaginal bleedingReturn for contractions closer, longer, harderReturn for decreased movementKeep appt for Saturday [facility] Evaluation + Plan note 11-02-2021 Note Date & Type Note Facility 11-02-2021 Evaluation + Plan note Diagnostic Tests PendingRPR with Conf Rfx 11/02/21 [facility] Hospital course Narrative Note Date & Type Note Facility Hospital course Narrative No data available for this section [facility] Hospital Discharge instructions Note Date & Type Note Facility Hospital Discharge instructions No data available for this section [facility] Progress note Note Date & Type Note Facility Progress note No data available for this section [facility] Summary Purpose Family History No Family History Records Found Advance Directives No Advanced Directives Records FoundNo Advanced Directives Records FoundNo Advanced Directives Records Found Additional Source Comments Care Team (unrecognized sect ion and content) Personnel Name: Breonna NICOLE CNP Address: [address] [place] [address]- Name: Rosy Jaquez Personnel Name: Breonna NICOLE CNP Address: [address] Name: Rosy Jaquez Personnel Name: Breonna NICOLE CNP Address: [address] [place] [address]- Name: Rosy Jaquez Personnel Name: Breonna NICOLE CNP Address: [address] Name: Rosy Jaquez Personnel Name: Breonna NICOLE CNP Name: Rosy Jaquez Personnel Name: Breonna NICOLE CNP Address: Address: [address] [place] [address]- Name: Rosy Jaquez Personnel Name: Breonna NICOLE CNP Address: Address: [address] [place] [address]- Name: Rosy Jaquez Lidia INFORMATION SOURCE (unrecogn ized section and content) DATE CREATED AUTHOR [facility]/06/2024 [facility] DATE CREATED AUTHOR AUTHOR'S ORGANIZ ATION 01/12/2024 Nicky Quinn Kevin gillettery DATE CREATED AUTHOR AUTHOR'S ORGANIZ ATION 01/29/2024 [facility] FOR RECORDS PERTAINING TO PATIENTS WHO ARE OR HAVE BEEN ENROLLED IN A CHEMICAL DEPENDENCY/SUBSTANCEABUSE PROGRAM, SOME INFORMATION MAY BE OMITTED. This clinical summary was aggregated from multiple sources. Caution should be exercised in using it in the provision of clinical care. This summary normalizes information from multiple sources, and as a consequence, information in this document may materially change the coding, format and clinical context of patient data. In addition, data may be omitted in some cases. CLINICAL DECISIONS SHOULD BE BASED ON THE PRIMARY CLINICAL RECORDS. [facility]. provides no warranty or guarantee of the accuracy or completeness of information in this document.
[2024-02-04 16:27] LABS: Basophils Percent Auto 0.2 % (0.2-2.0); Eosinophils Absolute Auto 0.1 10^3/uL (0.0-0.7); Eosinophils Percent Auto 0.7 % (0.9-7.0); Hematocrit 36.8 % (36.0-48.0); Hemoglobin 12.7 g/dL (12.0-16.0); Immature Granulocytes Abs Auto 0.02 10^3/uL (0.00-0.03); Immature Granulocytes Pct Auto 0.2 % (0.0-0.5); Lymphocytes Absolute Auto 1.7 10^3/uL (1.2-3.8); Lymphocytes Percent Auto 17.3 % (20.5-60.0); Mean Corpuscular HGB Conc 34.5 g/dL (29.9-35.2); Mean Corpuscular Hemoglobin 29.1 pg (26.7-34.0); Mean Corpuscular Volume 84.2 fL (81.0-99.0); Mean Platelet Volume 10.1 fL (9.5-13.5); Monocytes Absolute Auto 0.5 10^3/uL (0.3-0.8); Monocytes Percent Auto 5.1 % (1.7-12.0); Neutrophils Absolute Auto 7.5 10^3/uL (1.4-6.5); Neutrophils Percent Auto 76.5 % (43.0-75.0); Platelet Count 256 10^3/uL (150-450); Red Blood Count 4.37 10^6/uL (4.20-5.40); Red Cell Distribution Width 12.8 % (11.0-15.0); White Blood Count 9.8 10^3/uL (4.0-11.0)
[2024-02-04 16:37] LABS: Estimated Average Glucose 103 mg/dL; Glycohemoglobin A1C 5.2 % (4.5-6.2)
[2024-02-06 06:10] LABS: HBsAg Screen Negative (Negative); HCV Ab Non Reactive (Non Reactive); HIV Ab/p24 Ag Screen Non Reactive (Non Reactive)
[2024-02-06 12:09] LABS: Rapid Plasma Reagin, Quant Non Reactive titer (NonRea<1:1)
== END 2024-02-04 16:09 | disposition home or self-care (01) ==
LOC: LAB 16:09
PROVIDERS: Visit Provider Obstetrics & Gynecology
DX: N92.6 Irregular menstruation, unspecified (principal)
CPT/HCPCS: 36415; 83036; 85025; 86592; 86762; 86803; 86850; 86900; 86901; 87086; 87340; 87389

== ENCOUNTER 2024-02-12 20:19 | Outpatient (REF) | payer BC, SELFPAY ==
--- OUTSIDE RECORDS SUMMARY | 2024-02-12 20:25 | XMS_ITS | CCD ---
Author Organization [facility] Care Team Providers Care Title Searcher Name Role Phone Tarah NICOLEgh Lidia Primary Care Physician [phone] Rosy Jaquez Aleksandar V. Attending Daimon Tobias V. Attending ALMA Burris Attending Unavailable DK ZACARIAS Attending Unavailable CARMELLA NI Attending CARMELLA Guerra Attending Vj NI, CARMELLA Attending Unavailable Allergies Allergy Classification Reported Allergen(s) Allergy Type Date of Onset Reaction(s) Facility (1 source) No Known Medication Allergies; Translations: [No Known Medication Allergies] Propensity to adverse reactions (disorder) [facility] Repository Medications Current Medications Medication Drug Class(es) Dates Sig (Normalized) Sig (Original) amoxicillin 500 mg oral tablet (1 source) Penicillin-class Antibacterial Start: 01-16-2023 End: 01-23-2023 take 2 tablets by mouth twice daily amoxicillin 500 mg oral tablet 1,000 mg = 2 tab(s), Oral, BID, X 7 day(s), # 28 tab(s), Refills(s) 0, Pharmacy: [facility], 157, cm, 01/16/23 15:17:00 EDT, Height/Length [...] q6hr, # 15 tab(s), Refills(s) 0, Pharmacy: [facility], 157.4, cm, 01/30/22 18:05:00 EDT, Height/Length Dosing, 92.3, kg, 01/30/22 18:05:00 EDT, Weight Dosing Start Date: 02/01/22 Status: Ordered ondansetron 4 mg oral tablet (2 sources) Serotonin-3 Receptor Antagonist Start: 04-11-2023 take 1 tablet by mouth every six hours as needed for nausea ondansetron 4 mg Tab 4 mg = 1 tab(s), Oral, q6hr, PRN Nausea/Vomiting, # 15 tab(s), Refills(s) 0, Pharmacy: [facility], 160, cm, 04/11/23 16:22:00 EST, Height/Length [...] SIGNIFICANT GROWTH Report Status FINAL 01/12/2024 Normal [facility] Comment on above: Performed By: #### U RC #### [facility] [address] [place] [address] Transportation Coordinator: Les Garzon MD [facility] [address] [place] [address] Transportation Coordinator: Matt Jarrell MD CBC with Diffon 01-10-2024 Abs. Basophil 0.03 k/uL Normal 0.00-0.20 [facility] Comment on above: Performed By: #### C DP, LIP, CP #### [facility] [address] [place], [place] [phone] Transportation Coordinator: Matt Jarrell MD Abs.Imm.Granulocyte 0.03 k/uL Normal 0.00-0.30 [facility] Comment on above: Performed By: #### C DP, LIP, CP #### [facility] [address] [place] [id number] Transportation Coordinator: Matt Jarrell MD Abs.Neutrophil (Seg) 8.26 k/uL High 2.5-7.0 [facility] Comment on above: Performed By: #### C DP, LIP, CP #### [facility] [address] [place] [address] Transportation Coordinator: Matt Jarrell MD Basophils/100 WBC (Bld) 0 % Normal 0-2 [facility] Comment on above: Performed By: #### C DP LIP, CP #### [facility] [address] [phone] Transportation Coordinator: Matt Jarrell MD Eosinophils (Bld) [#/Vol] 0.08 10*3/uL Normal 0.00-0.40 [facility] Comment on above: Performed By: #### C DP, LIP, CP #### [facility] [address] [id number] Transportation Coordinator: Matt Jarrell MD Eosinophils/100 WBC (Bld) 1 % Normal 0-5 [facility] Comment on above: Performed By: #### C DP LIP, CP #### [facility] [address] [place] [address] Transportation Coordinator: Matt Jarrell MD Erythrocyte distribution width (RBC) [Ratio] 13.0 % Normal 12.1-15.2 [facility] Comment on above: Performed By: #### C DP, LIP, CP #### [facility] [address] [phone] Transportation Coordinator: Matt Jarrell MD Hematocrit (Bld) [Volume fraction] 38.8 % Normal 36.0-46.0 [facility] Comment on above: Performed By: #### C DP LIP, CP #### [facility] [address] [place], [place] [phone] Transportation Coordinator: Matt Jarrell MD Hemoglobin (Bld) [Mass/Vol] 13.3 g/dL Normal 12.0-16.0 [facility] Comment on above: Performed By: #### C DP LIP, CP #### [facility] [address] [place], [place] [phone] Transportation Coordinator: Matt Jarrell MD Immature granulocytes/100 WBC (Bld) 0 % Normal 0-5 [facility] Comment on above: Performed By: #### C DP LIP, CP #### [facility] [address] [place] [address] Transportation Coordinator: Matt Jarrell MD Lymphocytes (Bld) [#/Vol] 2.31 10*3/uL Normal 1.00-4.80 [facility] Comment on above: Performed By: #### C DP LIP, CP #### [facility] [address] [place], [place] [phone] Transportation Coordinator: Matt Jarrell MD Lymphocytes/100 WBC (Bld) 20 % Normal 15-40 [facility] Comment on above: Performed By: #### C DP LIP, CP #### [facility] [address] [place] [address] Transportation Coordinator: Matt Jarrell MD MCH (RBC) [Entitic mass] 28.8 pg Normal 26.0-34.0 [facility] Comment on above: Performed By: #### C DP LIP, CP #### [facility] [address] [place], [place] [phone] Transportation Coordinator: Matt Jarrell MD MCHC (RBC) [Mass/Vol] 34.3 g/dL Normal 31.0-37.0 [facility] Comment on above: Performed By: #### C OTILIA CHAMPION, CP #### [facility] [address] [place], [place] [phone] (683) Transportation Coordinator: Matt Jarrell MD MCV (RBC) [Entitic vol] 84.0 fL Normal 80.0-100.0 [facility] Comment on above: Performed By: #### C AKIRA LIP, CP #### [facility] [address] [place] [address] Transportation Coordinator: Matt Jarrell MD Monocytes (Bld) [#/Vol] 0.71 10*3/uL Normal 0.00-1.00 [facility] Comment on above: Performed By: #### C OTILIA CHAMPION, CP #### [facility] [address] [place] [address] Transportation Coordinator: Matt Jarrell MD Monocytes/100 WBC (Bld) 6 % Normal 4-8 [facility] Comment on above: Performed By: #### C OTILIA CHAMPION, CP #### [facility] [address] [place] [address] Transportation Coordinator: Matt Jarrell MD Neutrophil (Seg) 73 % Normal 47-75 [facility] Comment on above: Performed By: #### C AKIRA LIP, CP #### [facility] [address] [place] [address] Transportation Coordinator: Matt Jarrell MD Platelet mean volume (Bld) [Entitic vol] 9.9 fL Normal 6.0-12.0 [facility] Comment on above: Performed By: #### C AKIRA LIP, CP #### [facility] [address] [place], [place] [phone] (721) Transportation Coordinator: Matt Jarrell MD Platelets (Bld) [#/Vol] 244 10*3/uL Normal 140-450 [facility] Comment on above: Performed By: #### C OTILIA CHAMPION, CP #### [facility] [address] [place], [place] [phone] Transportation Coordinator: Matt Jarrell MD RBC (Bld) [#/Vol] 4.62 10*6/uL Normal 4.00-5.20 [facility] Comment on above: Performed By: #### C OTILIA CHAMPION, CP #### [facility] [address] [place], [place] [phone] Transportation Coordinator: Matt Jarrell MD WBC (Bld) [#/Vol] 11.4 10*3/uL High 3.5-11.0 [facility] Comment on above: Performed By: #### C OTILIA CHAMPION, CP #### [facility] [address] [place], [place] [phone] Transportation Coordinator: Matt Jarrell MD Comp Metabolic Profon 2023 Albumin [Mass/Vol] 4.0 g/dL Normal 3.5-5.2 [facility] Comment on above: Performed By: #### C OTILIA CHAMPION, CP #### [facility] [address] [place], [place] [phone] Transportation Coordinator: Matt Jarrell MD Alkaline Phos 92 U/L Normal 35-104 [facility] Comment on above: Performed By: #### C OTILIA CHAMPION, CP #### [facility] [address] [place], [place] [phone] Transportation Coordinator: Matt Jarrell MD ALT [Catalytic activity/Vol] 43 U/L High 5-33 [facility] Comment on above: Performed By: #### C OTILIA CHAMPION, CP #### [facility] [address] [place], [place] [phone] Transportation Coordinator: Matt Jarrell MD Anion gap [Moles/Vol] 15 mmol/L Normal 9-17 [facility] Comment on above: Performed By: #### C DP, LIP, CP #### [facility] [address] [place], [place] [phone] Transportation Coordinator: Matt Jarrell MD AST [Catalytic activity/Vol] 22 U/L Normal <32 [facility] Comment on above: Performed By: #### C DP, LIP, CP #### [facility] [address] [place] [address] Transportation Coordinator: Matt Jarrell MD Bilirubin [Mass/Vol] 0.6 mg/dL Normal 0.3-1.2 [facility] Comment on above: Performed By: #### C DP, LIP, CP #### [facility] [address] [place] [address] Transportation Coordinator: Matt Jarrell MD BUN/CRE Ratio 18 Normal 9-20 [facility] Comment on above: Performed By: #### C DP, LIP, CP #### [facility] [address] [place] [address] Transportation Coordinator: Matt Jarrell MD Calcium [Mass/Vol] 9.1 mg/dL Normal 8.6-10.4 [facility] Comment on above: Performed By: #### C DP, LIP, CP #### [facility] [address] [place] [address] Transportation Coordinator: Matt Jarrell MD Chloride [Moles/Vol] 101 mmol/L Normal 98-107 [facility] Comment on above: Performed By: #### C DP, LIP, CP #### [facility] [address] [place] [address] Transportation Coordinator: Matt Jarrell MD CO2 [Moles/Vol] 19 mmol/L Low 20-31 [facility] Comment on above: Performed By: #### C DP, LIP, CP #### [facility] [address] [place] [address] Transportation Coordinator: Matt Jarrell MD Creatinine [Mass/Vol] 0.5 mg/dL Normal 0.5-0.9 [facility] Comment on above: Performed By: #### C OTILIA CHAMPION, CP #### [facility] [address] [place] [address] Transportation Coordinator: Matt Jarrell MD GFR/1.73 sq M.predicted among non-blacks MDRD (S/P/Bld) [Vol rate/Area] mL/min/{1.73_m2} Normal >60 [facility] Comment on above: Result Comment: These results [...] renal tubular secretion. Performed By: #### C AKIRA LIP, CP #### [facility] [address] [place] [address] Transportation Coordinator: Matt Jarrell MD Glucose [Mass/Vol] 95 mg/dL Normal 70-99 [facility] Comment on above: Performed By: #### C OTILIA CHAMPION, CP #### [facility] [address] [place] [address] Transportation Coordinator: Matt Jarrell MD Potassium [Moles/Vol] 3.7 mmol/L Normal 3.7-5.3 [facility] Comment on above: Performed By: #### C AKIRA LIP, CP #### [facility] [address] [place] [address] Transportation Coordinator: Matt Jarrell MD Protein [Mass/Vol] 7.2 g/dL Normal 6.4-8.3 [facility] Comment on above: Performed By: #### C AKIRA LIP, CP #### [facility] [address] [place], [place] [phone] Transportation Coordinator: Matt Jarrell MD Sodium [Moles/Vol] 135 mmol/L Normal 135-144 [facility] Comment on above: Performed By: #### C AKIRA LIP, CP #### [facility] [address] [place], [place] [phone] Transportation Coordinator: Matt Jarrell MD Urea nitrogen [Mass/Vol] 9 mg/dL Normal 6-20 [facility] Comment on above: Performed By: #### C AKIRA LIP, CP #### [facility] [address] [place], [place] [phone] Transportation Coordinator: Matt Jarrell MD HCG, Quanton 01-10-2024 HCG, Quant 857252.0 mIU/mL High <5 [facility] Comment on above: Result Comment: Non-preg premeno <=5 Postmeno <=8 Male <=3 If HCG results do not concur with clinical observations, additional testing to confirm results is recommended. Performed By: #### B HCG #### [facility] [address] [place], [place] [phone] Transportation Coordinator: Matt Jarrell MD Lipaseon 01-10-2024 Lipase [Catalytic activity/Vol] 13 U/L Normal 13-60 [facility] Comment on above: Performed By: #### C OTILIA CHAMPION, CP #### [facility] [address] [place], [place] [phone] Transportation Coordinator: Matt Jarrell MD Urinalysis, Routineon 2023 Bilirubin, SemiQt,Ur Negative Normal NEG [facility] Comment on above: Performed By: #### KIRA Brewer #### [facility] [address] [place], [place] [phone] Transportation Coordinator: Matt Jarrell MD Blood, Urine TRACE Abnormal NEG [facility] Comment on above: Performed By: #### U AKIRA #### [facility] [address] [place] [address] Transportation Coordinator: Matt Jarrell MD Clarity (U) Clear Normal CLEAR [facility] Comment on above: Performed By: #### U A, UMICAO #### [facility] [address] [place] [address] Transportation Coordinator: Matt Jarrell MD Color (U) Yellow Normal YEL [facility] Comment on above: Performed By: #### U A, UMICAO #### [facility] [address] [place] [address] Transportation Coordinator: Matt Jarrell MD Comment Normal [facility] Comment on above: Performed By: #### U A, UMICAO #### [facility] [address] [place] [address] Transportation Coordinator: Matt Jarrell MD Glucose Ql (U) Negative Normal NEG [facility] Comment on above: Performed By: #### U A, UMICAO #### [facility] [address] [place] [address] Transportation Coordinator: Matt Jarrell MD Ketones Ql (U) MODERATE Abnormal NEG [facility] Comment on above: Performed By: #### U A, UMICAO #### [facility] [address] [place] [address] Transportation Coordinator: Matt Jarrell MD Leukocyte esterase Test strip Ql (U) 3+ Abnormal NEG [facility] Comment on above: Performed By: #### U A, UMICAO #### [facility] [address] [place] [address] Transportation Coordinator: Matt Jarrell MD Nitrite,Ur Negative Normal NEG [facility] Comment on above: Performed By: #### U A, UMICAO #### [facility] [address] [place] [address] Transportation Coordinator: Matt Jarrell MD PH,Ur 6.5 Normal 5.0-8.0 [facility] Comment on above: Performed By: #### U ASAGRARIOO #### [facility] [address] [place], [place] [phone] Transportation Coordinator: Matt Jarrell MD Protein Ql (U) 1+ mg/dL Abnormal NEG [facility] Comment on above: Performed By: #### U A, SAGRARIOO #### [facility] [address] [place], [place] [phone] Transportation Coordinator: Matt Jarrell MD Spec. [place],Ur 1.015 Normal 1.005-1.030 [facility] Comment on above: Performed By: #### U KIRA Murillo #### [facility] [address] [place] [address] Transportation Coordinator: Matt Jarrell MD Urobilinogen,Ur 8 mg/dL Normal 0.0-1.0 [facility] Comment on above: Performed By: #### U KIRA Murillo #### [facility] [address] [place] [address] Transportation Coordinator: Matt Jarrell MD Urinalysis,Microon 4 ----- Normal [facility] Comment on above: Performed By: #### U ASAGRARIOO #### [facility] [address] [place] [address] Transportation Coordinator: Matt Jarrell MD Bacteria RARE Abnormal NONE [facility] Comment on above: Performed By: #### U ASAGRARIOO #### [facility] [address] [place], [place] [phone] Transportation Coordinator: Matt Jarrell MD Epithelial cells LM Ql (Urine sed) 0 TO 2 Normal [facility] Comment on above: Performed By: #### U ASAGRARIOO #### [facility] [address] [place] [address] Transportation Coordinator: Matt Jarrell MD Mucus Strands RARE Abnormal NONE [facility] Comment on above: Performed By: #### U A, UMICAO #### [facility] [address] [place] [address] Transportation Coordinator: Matt Jarrell MD Urine RBC's 0 TO 2 Normal 0-2 [facility] Comment on above: Performed By: #### U A, UMICAO #### [facility] [address] [place] [address] Transportation Coordinator: Matt Jarrell MD Urine WBC's 10 TO 20 Normal 0 [facility] Comment on above: Performed By: #### U A, UMICAO #### [facility] [address] [place] [address] Transportation Coordinator: Matt Jarrell MD Provider Letteron 04-12-2023 Provider Letter April 12, 2023 [facility] [address] [place] [address] : 1995 To Whom It May Concern, Please excuse above patient from work. Date of Illness:04-11-2023 To: 04-14-2023 May Return to Work On:04-15-2023 Restrictions: _ Comments: _ Sincerely, [facility] [address] [place] [address], [place] [address] [facility] Family Medicine Office/Clini c Noteon 04-11-2023 Family Medicine Office/Clinic Note Chief Complaint n/v/d HPI Staff 27 yr old female here for abdominal pain and diarrhea. Nausea and vomiting. Onset- Saturday fever/chills- Chills Body aches- yes History of Present Illness Portions of this record may have been created with voice recognition artificial intelligence software, specifically [employer], [employer] and or [employer]. Substitutions may have occurred due to the [...] Nausea/Vomiting, # 15 tab(s), Refills(s) 0, Pharmacy: [facility], 160, cm, 04/11/23 16:22:00 EST, Height/Length Dosing, 97.4, kg, 04/11/23 16:22:00 EST, Weight Dosing Follow-up With When Contact Information Breonna NICOLE CNP [address] [place] [address]- Additional Instructions: Patient Education Nausea and Vomiting, [...] Given Postpone due to refusal SARS-CoV-2 mRNA (toramineran 5y-11y) vac - Not Given Postpone due [...] B pediatric vaccine 1995 Recorded Normal [facility] Comment on above: Result Comment: Elec tronically Signed By: Damion Ortega PA-C, V.\.br\Date and Time Signed: 04/11/23 17:10 EST Patient [...] added (diluted fruit juice). ? Eat bland, sxkc-gi-wiyzfu foods in small amounts as you are able. These foods include bananas, applesauce, rice, lean meats, toast, and crackers. ? Avoid fluids that contain a lot of sugar or caffeine, such as energy drinks, sports drinks, and soda. ? Avoid alcohol. ? Avoid spicy or fatty foods. General instructions ? Take fobb-nbl-gbvosxm and prescription medicines only as told by your health care provider. ? Drink enough fluid to keep your urine pale yellow. ? Wash your hands often using soap and water for at least 20 seconds. If soap and water are not available, use hand carport erector. ? Make sure that everyone in your [...] and drinking to prevent dehydration. ? Take pfjp-yvf-amsgsku and prescription medicines only as told by [...] provider. Document Revised: 11/03/2021 Document Reviewed: 11/03/2021 [employer] Patient Education ? 2022 [employer] Normal [facility] [address], [place] [address] April 11, 2023 [facility] [address] [place] [address] : 1995 Please excuse BECKI COYNE from work . Date and/or Time of Absence: From: 04/11 To: 03/15 May return to work on: 03/16 Restrictions: None Comments: Please excuse due to an acute illness. Provider Signature: Keshav Ortega PA-C [address] [address] [facility] Family Medicine Office/Clini c Noteon 01-16-2023 [...] with voice recognition software. Occasional wrong-word or ?jlozo-a-uexn? substitutions may have occurred due to the [...] day(s), # 28 tab(s), Refills(s) 0, Pharmacy: [facility], 157, cm, 01/16/23 15:17:00 EDT, Height/Length [...] to [facility]. Ordered: Ear Irrigation 04468 Ear Irrigation 84302 3. Cigarette smoker (F17.210: Nicotine dependence, cigarettes, [...] subsequent vi (more content not included)... Normal [facility] Comment on above: Result Comment: Elec tronically Signed By: Valente ISABEL, Delfino Crenshaw\.br\Date and Time Signed: 01/16/23 15:53 EDT Patient Educationon 01-17-20 Patient Education ENT Earwax Buildup, Adult The [...] Follow these instructions at home: ? Take dgoe-son-twnizwb and prescription medicines only as told by [...] clean them according to instructions from the senior systems developer and your health care provider. Contact a [...] provider. Document Revised: 08/16/2020 Document Reviewed: 08/16/2020 [employer] Patient Education ? 2022 [employer] Ear Irrigation Ear irrigation is a procedure [...] drops, cr (more content not included)... Normal [facility] HEMATOLOGYOrdered By: Megan Montana on 02-01-2022 Erythrocyte [...] HemeAutoSS Comment on above: Result Comment: Ekta benavides reviewed by RS 02/01/2022 07:19:32 EDT. BLOOD [...] - 11.0 E9/L [facility] HemeAutoSS URINALYSISOrdered By: uGzman Nunez on 01-30-2022 Bilirubin Ql (U) Negative [...] PM) Normal Negative [facility] UA Auto SS Joiner.plasma/Lithiu m.RBC (Bld) [Mass ratio] 0-3 /HPF Normal 0-3/HPF [facility] UA Auto SS Nitrite Ql (U) Negative (01/30/22 11:01 PM) Normal Negative [facility] UA Auto SS pH (U) 7.0 *NA* (01/30/22 11:01 PM) Invalid Interpretation Code 5.0 - 9.0 [facility] UA Auto SS Protein (U) [Mass/Vol] Negative (01/30/22 11:01 PM) Normal Negative [facility] UA Auto SS Specific gravity (U) [Rel density] 1.020 *NA* (01/30/22 11:01 PM) Invalid Interpretation Code 1.005 - 1.030 [facility] UA Auto SS UA Spec Desc Lamas (01/30/22 11:01 PM) Normal [facility] UA Auto SS Urobilinogen Qn (U) [id number] {Kai'U}/dL Normal 0.0 - 1.0 EU/dL [facility] UA Auto SS WBC Auto Ql (U) Negative (01/30/22 11:01 PM) Normal Negative [facility] UA Auto SS WBC LM.HPF (Urine sed) [#/Area] 0-5 /HPF Normal 0-5/HPF [facility] UA Auto SS CHEMISTRYOrdered By: SYSTEM SYSTEM on 11-02-2021 Glucose 1 Hr post 50 g glucose PO [Mass/Vol] 91 mg/dL Normal 55 - 140 mg/dL [facility] Remisol HEMATOLOGYOrdered By: Prerna brumfield on 11-02-2021 Hematocrit (Bld) [Volume fraction] 32.6 % Low 34.0 - 46.0 % [facility] HemeAutoSS Hemoglobin (Bld) [Mass/Vol] 10.9 g/dL Low 12.0 - 16.0 gm/dL [facility] HemeAutoSS Vital Signs Date Time Vital Sign Value Performing Clinician Facility 04-11-2023 16:19-0500 Blood Pressure Location [facility] 04-11-2023 16:19-0500 Body temperature 97.7 [degF] [facility] 04-11-2023 16:19-0500 Diastolic blood pressure 75 mm[Hg] [facility]ion [facility] 04-11-2023 16:19-0500 Heart rate 90 /min Damion [facility] 04-11-2023 16:19-0500 SaO2% (BldA) [Mass fraction] 99 % Admion [facility] 04-11-2023 16:19-0500 Systolic blood pressure 122 mm[Hg] Damion Spasic [facility] 01-16-2023 15:12-0400 Blood Pressure Location Damion Spasic [facility] 01-16-2023 15:12-0400 Body temperature 98.42 [degF] Damion Spasic [facility] 01-16-2023 15:12-0400 Diastolic blood pressure 78 mm[Hg] Damion Spasic [facility] 01-16-2023 15:12-0400 Heart rate 76 /min Damion Spasic [facility] 01-16-2023 15:12-0400 SaO2% (BldA) [Mass fraction] 98 % Damion Spasic [facility] 01-16-2023 15:12-0400 Systolic blood pressure 118 mm[Hg] Damion Spasic [facility] 02-01-2022 17:45-0400 [facility] Comment on above: Result Comment: secured in carsea t and education show to pt. pt wheeled down to exit for discharge with baby in carseat on lap. secured in car in carseat base. 02-01-2022 16:00-0400 [facility] Comment on above: Result Comment: discharge instructions e ducated to pt. pt verbalizes understanding and asks appropriate questions. RN stresses importance of scheduling 6 week post follow up appointment with Adrianne and pt verbalizes understanding. discharge papers signed with pt and RN witness. 02-01-2022 16:00-0400 Promise to Return [facility] 02-01-2022 15:00-0400 Hourly Rounding [facility] Comment on above: Result Comment: latch checked and assist ed by RN. pt appropriately returns demonstration back to RN 02-01-2022 15:00-0400 Promise to Return [facility] 02-01-2022 14:00-0400 Promise to Return [facility] 02-01-2022 13:45-0400 Blood Pressure Location [facility] 02-01-2022 13:45-0400 Body temperature 97.7 [degF] [facility] 02-01-2022 13:45-0400 Diastolic blood pressure 68 mm[Hg] [facility] 02-01-2022 13:45-0400 Heart rate 65 /min [facility] 02-01-2022 13:45-0400 Mean blood pressure 88 mm[Hg] [facility] 02-01-2022 13:45-0400 Respiratory rate 18 /min [facility] 02-01-2022 13:45-0400 SaO2% (BldA) [Mass fraction] 100 % [facility] 02-01-2022 13:45-0400 Systolic blood pressure 129 mm[Hg] [facility] 02-01-2022 07:28-0400 Blood Pressure Location [facility] 02-01-2022 07:28-0400 Body temperature 97.7 [degF] [facility] 02-01-2022 07:28-0400 Diastolic blood pressure 54 mm[Hg] [facility] 02-01-2022 07:28-0400 Heart rate 75 /min [facility] 02-01-2022 07:28-0400 Mean blood pressure 66 mm[Hg] [facility] 02-01-2022 07:28-0400 SaO2% (BldA) [Mass fraction] 98 % [facility] 02-01-2022 07:28-0400 Systolic blood pressure 91 mm[Hg] [facility] 01-31-2022 21:00-0400 Blood Pressure Location [facility] 01-31-2022 21:00-0400 Body temperature 98.24 [degF] [facility] 01-31-2022 21:00-0400 Diastolic blood pressure 63 mm[Hg] [facility] 01-31-2022 21:00-0400 Heart rate 82 /min [facility] 01-31-2022 21:00-0400 Mean blood pressure 76 mm[Hg] [facility] 01-31-2022 21:00-0400 Respiratory rate 18 /min [facility] 01-31-2022 21:00-0400 SaO2% (BldA) [Mass fraction] 98 % [facility] 01-31-2022 21:00-0400 Systolic blood pressure 102 mm[Hg] [facility] 01-31-2022 17:45-0400 Respiratory rate 20 /min [facility] 01-31-2022 13:20-0400 Mean blood pressure 78 mm[Hg] [facility] 12-21-2021 12:27-0400 Body temperature 98.42 [degF] [facility] 12-21-2021 12:27-0400 Diastolic blood pressure 59 mm[Hg] [facility] 12-21-2021 12:27-0400 Heart rate 76 /min [facility] 12-21-2021 12:27-0400 Mean blood pressure 78 mm[Hg] [facility] 12-21-2021 12:27-0400 Respiratory rate 20 /min [facility] 12-21-2021 12:27-0400 Systolic blood pressure 117 mm[Hg] [facility] 12-21-2021 12:15-0400 Blood Pressure Location [facility] Encounters Encounter Date Encounter Type Care Provider Facility Start: 02-04-2024 End: 02-04-2024 ambulatory CARMELLA NI Not Available Start: 01-28-2024 End: 01-28-2024 ambulatory CARMELLA NI Not Available Start: 01-16-2024 End: 01-16-2024 ambulatory CARMELLA NI Not Available Start: 01-10-2024 End: 01-10-2024 [facility] Start: 01-08-2024 End: 01-08-2024 ambulatory CARMELLA NI Not Available Start: 01-04-2024 End: 01-04-2024 ambulatory ALMA LONG Facility:[facility] Start: 01-04-2024 End: 01-04-2024 Patient encounter procedure ALMA LONG [facility] Start: 04-11-2023 End: 04-11-2023 ambulatory Damion V. Spasic Facility:[facility] Start: 04-11-2023 End: 04-11-2023 Patient encounter procedure Damion V. Spasic [facility] Start: 01-16-2023 End: 01-16-2023 ambulatory Damion V. Spasic Facility:[facility] Start: 01-16-2023 End: 01-16-2023 Patient encounter procedure Damion V. Spasic [facility] Start: 01-30-2022 End: 02-01-2022 Evaluation and management of inpatient [facility] Start: 01-16-2022 End: 01-16-2022 Lab Drop off [facility] Start: 12-21-2021 End: 12-21-2021 OB Triage [facility] Start: 11-02-2021 End: 11-02-2021 Patient encounter procedure [facility] Procedures Date Procedure Procedure Detail Performing Clinician Structure of left wr ist (body structure) [facility] Immunizations Immunization Date Immunization Notes Care Provider Fa cility 06-09-2009 HPV, unspecified formulation Damion Spasic [facility] 02-05-2009 HPV, unspecified formulation Damion Spasic [facility] 02-05-2009 influenza virus vaccine, unspecified formulation Damion Spasic [facility] 12-03-2008 HPV, unspecified formulation Damion Spasic [facility] 12-03-2008 meningococcal ACWY vaccine, unspecified formulation Damion Spasic [facility] 12-03-2008 tetanus toxoid, reduced diphtheria toxoid, and acellular pertussis vaccine, adsorbed Damion Spasic [facility] 12-03-2008 varicella virus vaccine Damion Spasic [facility] 12-05-2001 DTaP, unspecified formulation Damion Spasic [facility] 12-05-2001 measles, mumps and rubella virus vaccine Damion Spasic [facility] 04-06-1998 DTaP, unspecified formulation Damion Spasic [facility] 04-06-1998 haemophilus influenz ae type b vaccine, PRP-OMP conjugate Damion Spasic [facility] 04-06-1998 measles, mumps and rubella virus vaccine Damion Spasic [facility] 04-06-1998 poliovirus vaccine, unspecified formulation Damion Spasic [facility] 04-06-1998 varicella virus vaccine Damion Spasic [facility] 08-25-1997 DTaP, unspecified formulation Damion Spasic [facility] 08-25-1997 haemophilus influenz ae type b vaccine, PRP-OMP conjugate Damion Spasic [facility] 08-25-1997 hepatitis B vaccine, pediatric or pediatric/adolescent dosage Damion Spasic [facility] 02-08-1997 haemophilus influenz ae type b vaccine, PRP-OMP conjugate Damion Spasic [facility] 02-08-1997 poliovirus vaccine, unspecified formulation Damion Spasic [facility] 1996 DTaP, unspecified formulation Damion Spasic [facility] 1996 haemophilus influenz ae type b vaccine, PRP-OMP conjugate Damion Spasic [facility] 1996 hepatitis B vaccine, pediatric or pediatric/adolescent dosage Damion Spasic [facility] 1996 poliovirus vaccine, unspecified formulation Damion Spasic [facility] 1996 hepatitis B vaccine, pediatric or pediatric/adolescent dosage Damion Spasic [facility] NEGATED: Highlighted row has not occurred!01-16-2023 influenza virus vaccine, unspecified formulation Damion Spasic [facility] NEGATED: Highlighted row has not occurred!01-16-2023 SARS-CoV-2 mRNA (tozinameran 5y-11y) vaccine Damion Spasic [facility] Payers Date Payer Category Payer Unknown [id number] 1996 Unknown [id number] 2.16.8 [id number] 1996 Unknown [id number] 2.16.8 [id number] 1996 Unknown [id number] 2.16.8 [id number] 1996 Unknown [id number] 2.16.8 [id number] 1996 Unknown [id number] 2.16.84 [id number] 1996 Unknown [id number] 2.16.84 [id number] 1996 Unknown [id number] 2.16.84 [id number] 1996 Unknown [id number] 2.16.84 [id number] Social History Date Type Detail Facility Start: 05-20-2021 End: 04-11-2023 Tobacco smoking status Heavy tobacco smoker (finding) [facility] Tobacco smoking status Never [facility] Sex Assigned At Female [facility] Functional Status Date Assessment Result Facility 04-11-2023 Functional Status N/A [facility] 01-16-2023 Functional Status N/A [facility] 01-30-2022 Functional Status No [facility] 12-21-2021 Functional Status N/A [facility] Hospital Discharge instructions 04-11-2023 Note Date & [...] water added (diluted fruit juice). Eat bland, pyji-zk-cfpfar foods in small amounts as you are able. These foods include bananas, applesauce, rice, lean meats, toast, and crackers. Avoid fluids that contain a lot of sugar or caffeine, such as energy drinks, sports drinks, and soda. Avoid alcohol. Avoid spicy or fatty foods. General instructions Take kngr-tde-kmoprax and prescription medicines only as told by your health care provider. Drink enough fluid to keep your urine pale yellow. Wash your hands often using soap and water for at least 20 seconds. If soap and water are not available, use hand carport erector. Make sure that everyone in your household [...] eating and drinking to prevent dehydration. Take skra-ukg-axitpge and prescription medicines only as told by [...] provider. Document Revised: 11/03/2021 Document Reviewed: 11/03/2021 [employer] Patient Education 2022 [employer]. Follow Up Care 04/11/2023 16:03:12 With:Breonna NICOLE CNP Address: [address] [place] [address]- When: Unknown [facility] Hospital Discharge instructions 01-16-2023 Note Date & Type Note Facility 09-06-2023 Hospital Discharge instructions Patient Education 01/16/2023 15:52:50 [...] numbers. This can be done either in Irish ([place] or metric measurements. Note that charts and online BMI calculators are available to help you find your BMI quickly and easily without having to do these calculations yourself. To calculate your BMI in Irish ([place] measurements: 1.Measure your weight in pounds [...] Centers for Disease Control and Prevention: www.cdc.gov [place] [employer]: www.heart.org National Heart, Lung, and Blood [place]: www.nhlbi.nih.gov Summary Body mass index (BMI) is a number that is calculated from a person's weight and height. BMI may help estimate how much of a person's weight is composed of fat. BMI can help identify those who may be at higher risk for certain medical problems. BMI can be measured using Irish measurements or metric measurements. BMI charts are used to identify whether you are underweight, normal weight, overweight, or obese. This information is not intended to replace advice given to you by your health care provider. Make sure you discuss any questions you have with your health care provider. Document Revised: 01/20/2020 Document Reviewed: 11/27/2019 [employer] Patient Education 2022 [employer] 01/16/2023 15:52:47 Health Risks of Smoking Health [...] to children increases the risk of: Sudden syndrome (SIDS). Infections in the nose, throat, [...] Department of Health and Human Services: www.smokefree.gov [place] [employer]: www.freedomfromsmoking.org [place] [employer] Association: www.heart.org Where to find more [...] provider. Document Revised: 05/01/2022 Document Reviewed: 05/01/2022 [employer] Patient Education 2022 [employer]. 01/16/2023 15:52:45 Earwax Buildup, Adult Earwax Buildup, [...] cases. Follow these instructions at home: Take geuy-bhp-kvngtrz and prescription medicines only as told by [...] clean them according to instructions from the senior systems developer and your health care provider. Contact a [...] provider. Document Revised: 08/16/2020 Document Reviewed: 08/16/2020 [employer] Patient Education 2022 [employer]. 01/16/2023 15:52:44 Ear Irrigation Ear Irrigation Ear [...] including vitamins, herbs, eye drops, creams, and sfxi-cqw-nnvzquz medicines. Any problems you or family members [...] oil, mineral oil, glycerin, hydrogen peroxide, or bgjp-puy-wnvjfew earwax softening drops. Do not use cotton swabs to clean your ears. These can push wax down into the ear canal. Do not put anything into your ears to try to remove wax. This includes ear candles. General instructions Take lkpv-git-wgbajeq and prescription medicines only as told by [...] provider. Document Revised: 08/16/2020 Document Reviewed: 08/16/2020 [employer] Patient Education 2022 [employer] 01/16/2023 15:52:42 Otitis Media, Adult Otitis Media, [...] pain. Follow these instructions at home: Take ijry-luf-nphcjjx and prescription medicines only as told by [...] provider. Document Revised: 08/07/2021 Document Reviewed: 08/07/2021 [employer] Patient Education 2022 [employer]. Follow Up Care 01/16/2023 14:31:22 With:Breonna NICOLE CNP Address:Unknown When: Unknown [facility] Hospital Discharge instructions 02-01-2022 Note [...] work with your health care provider or unix consultant. If you are not : ?Avoid [...] about methods of control (contraception). Medicines Take gmed-hay-vnsqnbv and prescription medicines only as told by [...] 02/24/2008 Document Revised: 05/02/2018 Document Reviewed: 02/10/2018 [employer] Patient Education 2020 [employer]. 02/01/2022 07:57:10 Baby Blues Baby Blues The [...] music. Avoid alcohol. Ask for help with associate manager affiliate marketing, cooking, grocery shopping, or running errands. Do not try to do everything yourself. Consider hiring a athletic field custodian to help. This is a professional who [...] the things you are grateful for. Take ozco-rbp-srgwgdi and prescription medicines only as told by [...] 01/31/2005 Document Revised: 08/21/2019 Document Reviewed: 06/25/2017 [employer] Patient Education 2019 [employer]. Follow Up Care 12/22/2021 00:47:00 With:[facility] Address: [address], [address] [address] Business (1) When:6 weeks [facility] Evaluation + Plan note 01-31-2022 Note Date [...] EPIDURAL PREOP Author:Devon Zimmer DO Date:01/30/22 Plan [place] [employer] Anesthesiologists (ASA) physical status classification: [...] were addressed. . Informed consent was given. [facility] Evaluation + Plan note 01-16-2022 Note Date & Type Note Facility 01-16-2022 Evaluation + Plan note Diagnostic Tests PendingGroup B Streptococcus colonization by PCR 01/16/22 [facility] Hospital Discharge instructions 12-21-2021 Note Date & Type Note Facility 12-21-2021 Hospital Discharg e instructions Follow Up Care 12/21/2021 12:14:12 With:[facility] Address: [address] [place] [address]- Business (1) When:12/25/2021 Comments:Call for any problems.Call for fever > 100.5 FCall for severe abdominal painCall physician for heavy vaginal bleedingReturn for contractions closer, longer, harderReturn for decreased movementKeep appt for Saturday [facility] Evaluation + Plan note 11-02-2021 Note Date & Type Note Facility 11-02-2021 Evaluation + Plan note Diagnostic Tests PendingRPR with Conf Rfx 11/02/21 [facility] Hospital course Narrative Note Date & Type Note Facility Hospital course Narrative No data available for this section [facility] Hospital Discharge instructions Note Date & Type Note Facility Hospital Discharge instructions No data available for this section [facility] Progress note Note Date & Type Note Facility Progress note No data available for this section [facility] Summary Purpose Family History No Family History Records Found Advance Directives No Advanced Directives Records FoundNo Advanced Directives Records FoundNo Advanced Directives Records Found Additional Source Comments Care Team (unrecognized sect ion and content) Personnel Name: Breonna NICOLE CNP Address: [address] [place] [address] Name: Rosy Jaquez Personnel Name: Breonna NICOLE CNP Address: [address] [place] Name: Rosy Jaquez Personnel Name: Breonna NICOLE CNP Address: [address] [place] Name: Rosy Jaquez Personnel Name: Breonna NICOLE CNP Address: [address] [place] Name: Rosy Jaquez Personnel Name: Breonna NICOLE CNP Name: Rosy Jaquez Personnel Name: Breonna NICOLE CNP Address: Address: [address] [place] [address]- Name: Rosy Jaquez Personnel Name: KAILYNJEANMARIE VIKASHBreonna Lidia Address: Address: [address] [place] [address]- Name: Rosy Jaquez INFORMATION SOURCE (unrecogn ized section and content) DATE CREATED AUTHOR 01/06/2024 [facility] DATE CREATED AUTHOR AUTHOR'S ORGANIZ ATION 01/12/2024 Nicky Quinn [facility] DATE CREATED AUTHOR AUTHOR'S ORGANIZ ATION 02/07/2024 [facility] FOR RECORDS PERTAINING TO PATIENTS WHO [...] BE BASED ON THE PRIMARY CLINICAL RECORDS. [facility]. provides no warranty or guarantee of the accuracy or completeness of information in this document.
[2024-02-19 11:09] LABS: Age Gdln ACOG Testing Note (.); IGP, rfx Aptima HPV ASCU Note (.)
== END 2024-02-12 20:20 | disposition home or self-care (01) ==
LOC: LAB 20:19
PROVIDERS: Visit Provider Obstetrics & Gynecology
DX: Z01.419 Encounter for gynecological examination (general) (routine) without abnormal findings (principal)
CPT/HCPCS: 88175

== ENCOUNTER 2024-03-06 07:36 | Outpatient (RCR) | payer BC, SELFPAY ==
[2024-02-14 09:06] VITALS: BP 107/78; PULSE 72; TEMP 36.6; O2SAT 98
[2024-02-14] MEDS: MULTIVIT INFUSN,ADULT 4,VIT K 10 ML in 0.9 % SODIUM CHLORIDE 1,000 ML 1010 ML IV (09:15)
--- NOTE | 2024-02-14 10:56 | PC.NURSE ---
1040 tolerated infusion without any issuesl IV dc'd catheter intact, cottonball and coban applied. Released ambulatory
[2024-02-21] MEDS: MULTIVIT INFUSN,ADULT 4,VIT K 10 ML in 0.9 % SODIUM CHLORIDE 1,000 ML 1010 ML IV (15:54)
[2024-02-21 15:58] VITALS: BP 107/78; PULSE 72; TEMP 36.6; O2SAT 95
[2024-02-28 15:18] VITALS: BP 123/84; PULSE 95; TEMP 36.5; O2SAT 95
[2024-02-28] MEDS: MULTIVIT INFUSN,ADULT 4,VIT K 10 ML in 0.9 % SODIUM CHLORIDE 1,000 ML 1010 ML IV (15:30)
--- NOTE | 2024-02-28 16:15 | PC.NURSE ---
1540 after infusion running a few minutes she states I can't get my breath infusion stopped, lungs clear throughout vs stable. 124/70 T97.8 p 100 r 18. this feeling left within a minute patient stated maybe I was having an anxiety attack. 1545 infusion restarted on gravity at rate of 500 ml hr. 1600 tolerating infusion without anyfurther s/s of reaction/issues. resting quietly, watching phone. 1600 resumed iv fluids at ordered rate 999/hr. 1615 tolerating infsion without any issue. 101/67 T 97.7 P100 r 18
[2024-02-28 16:25] VITALS: BP 101/75; PULSE 76; TEMP 37.1; O2SAT 98
[2024-02-28 16:38] VITALS: BP 107/70; PULSE 68; TEMP 36.4; O2SAT 99
[2024-03-06 15:49] VITALS: BP 116/78; PULSE 73; TEMP 36.3; O2SAT 99
[2024-03-06] MEDS: MULTIVIT INFUSN,ADULT 4,VIT K 10 ML in 0.9 % SODIUM CHLORIDE 1,000 ML 1010 ML IV (15:59)
--- NOTE | 2024-03-06 16:58 | PC.NURSE ---
1655 tolerated infusion without any issues.IV site left hand dc'd, catheter intact site clear. cottonball and coban applied. released ambatory
== END 2024-03-12 23:59 | disposition home or self-care (01) ==
LOC: INF 07:36
PROVIDERS: Visit Provider Obstetrics & Gynecology
DX: O21.0 Mild hyperemesis gravidarum (principal); Z3A.00 Weeks of gestation of pregnancy not specified
CPT/HCPCS: 96365; 96366